=== PATIENT | female | born 1985 | race African-American/Black ===

== ENCOUNTER 2016-09-11 05:43 | Day surgery (SDC) | payer MEDICAID ==
[2016-09-09 15:50] LABS: BASOPHILS 0.8 % (0.0-2.0); EOSINOPHILS 1.9 % (0-7); HEMATOCRIT 39.4 % (36.0-48.0); HEMOGLOBIN 12.6 g/dL (12-16); IMMATURE GRANULOCYTES 0.2 % (0-5); LYMPHOCYTES 25.7 % (15-50); MCV 90.8 fL (80.0-100.0); MEAN PLATELET VOLUME 9.5 fL (7.4-10.4); MONOCYTES 6.5 % (2-11); NEUTROPHILS 64.9 % (40-80); PLATELET COUNT 288 10x3/uL (130-400); RBC 4.34 10x6/uL (4.00-5.40); RDW 13.2 % (11.5-14.5); WBC 10.1 10x3/uL (4.8-10.8)
[2016-09-09 16:00] LABS: CALC OSMOLALITY 279 mosm/kg (275-300); CHLORIDE - SERUM 105 mmol/L (98-107); CREATININE - SERUM 0.9 mg/dL (0.6-1.3); GLUCOSE 83 mg/dL (74-106); POTASSIUM - SERUM 4.3 mmol/L (3.5-5.1); SODIUM 142 mmol/L (136-145); UREA NITROGEN 8 mg/dL (7-18); eGFR NON AFRICAN AMERICAN 77 mL/min (90-120)
--- NOTE | 2016-09-10 16:55 | HP ---
PATIENT: MANOHAR ARZATE MEDICAL RECORD: [id number] ACCOUNT: [id number] LOCATION:[facility] : 84 ADMISSION DATE: 09/11/16 HISTORY AND PHYSICAL EXAMINATION HISTORY OF PRESENT ILLNESS: This patient is a 30-year-old black female with menorrhagia and myomas. Biopsy of the endometrium was attempted in office; however, cervix extremely difficult to visualize because of the patient's weight and procedure scheduled for the OR for better lighting and pelvic relaxation. The patient had undergone a pelvic ultrasound on August 23 revealing a uterus of approximately 16 cm in length and endometrium of 0.56 cm. Ovaries appeared within normal limits and uterus appeared to have a myoma. Myoma was described as large, 11.4 cm x 11. The patient is scheduled for evaluation under anesthesia with endometrial endocervical biopsies curettage as indicated. MEDICAL HISTORY: DRUG ALLERGIES: None known. CURRENT MEDICATIONS: Naproxen, lisinopril, and metaxalone. PREVIOUS SURGERIES: Tubal ligation. MEDICAL PROBLEMS: Include diabetes, and morbid obesity. FAMILY HISTORY: Noncontributory. REVIEW OF SYSTEMS: Heavy, irregular menses, lasting 3-5 days and occurring less than 21 days apart. REVIEW OF SYSTEMS: No chest pain, no dyspnea. PREVIOUS SURGERIES: Include section as well as tubal ligation. PHYSICAL EXAMINATION: VITAL SIGNS: Weight is 325 pounds, blood pressure 130/80. HEENT: Grossly unremarkable. LUNGS: Clear. HEART: Regular rate and rhythm. ABDOMEN: Well healed section incision. PELVIC: Evaluating the external vulva, unremarkable. Vagina, no lesions or abnormal discharge, no prolapse. Cervix closed, firm and unable to visualize with largest speculum. EXTREMITIES: No cyanosis, clubbing or edema. NEUROLOGIC: Grossly intact. IMPRESSION: Abnormal uterine bleeding, uterine enlargement due to myomas, cervical stenosis precluding an in office biopsy of the endometrium. PLAN: Examination under anesthesia, endocervical curettage, hysteroscopy with endometrial biopsy and endometrial curettage under anesthesia. Discussed the above plan with the patient. Discussed potential risk of surgery, answered all her questions. TRANSINT:[id number] Voice Confirmation ID: [id number] DOCUMENT ID: [id number] HISTORY AND PHYSICAL [id number] MANOHAR ARZATE BRENDA MD at 1655 CC: [id number] DICTATION DATE: 09/10/16 1251 OPEN DIE INSPECTOR: 09/10/16 [id number] [place] [address]
[~2016-09-11] VITALS: Ht 165.1 cm; Wt 145.1 kg
[~2016-09-11 05:43] MED LIST: GLUCOPHAGE500 MG PO; HYDROCHLOROTHIA25 MG PO; IBUPROFEN800 MG PO; NAPROSYN500 MG PO; NORCO 7.5/325 T1 TA1 PO; PERCOCET 5-3251 TAB PO; ROBAXIN500 MG PO
[2016-09-11 08:42] VITALS: BP 159/80; Ht 165.1 cm; Wt 145.1 kg
[2016-09-11 10:04] LABS: HCG SERUM NEGATIVE (NEGATIVE)
--- NOTE | 2016-09-11 15:10 | NUR ---
DISCHARGE INSTRUCTIONS AND RX GIVEN. DISCHARGED HOME VIA WC.
--- NOTE | 2016-09-13 08:37 | OP ---
PATIENT NAME: MANOHAR ARZATE MEDICAL RECORD: [id number] :84 LOCATION:[facility] ADMISSION DATE: SURGEON: NAY ARCHIBALD MD DATE OF OPERATION: 09/11/2016 PREOPERATIVE DIAGNOSES: Menorrhagia and myomas. POSTOPERATIVE DIAGNOSES: Menorrhagia and myomas. PROCEDURES: Examination under anesthesia, endocervical curettage, attempted hysteroscopy. SURGEON: Nay Archibald MD ANESTHESIA: General. FINDINGS: The cervix was very high in the vagina and anterior, difficult to evaluate. Endometrium was consistent in appearance with previous ablation. The endometrial cavity depth was greater than 14 cm in length. It was not possible to evaluate the entire endometrium, because of previous ablation. ESTIMATED BLOOD LOSS: Minimal. COMPLICATIONS OF SURGERY: None. OPERATIVE NOTE: The patient was taken to the OR and under adequate general anesthesia, prepped and draped in the usual manner for vaginal procedures with legs in floating boot Ra stirrups. Evaluation of the patient under anesthesia revealed the cervix to be extremely anterior with os pointing posteriorly. Cervix was grasped with tenaculum and endocervical curettage was performed. Cervical dilatation was performed. The hysteroscope was then inserted with difficulty in evaluating the entire endometrium. Visualization revealed areas consistent with an old ablation. No biopsies were taken because tissues appeared atrophic. At the end of evaluation, all instruments were removed, bleeding was minimal and the patient went to the recovery area in good condition. TRANSINT:[id number] Voice Confirmation ID: [id number] DOCUMENT ID: [id number] NAY ARCHIBALD MD at 0837 CC: [id number] DICTATION DATE: 09/11/16 1228 CRADLE SLIDE MAKER: 09/11/16 1315 [facility] 09/11/16 [place] [address]
== END 2016-09-11 15:10 | disposition home or self-care (01) ==
LOC: D.OPS 05:43 → D.PAN 11:45 → D.OPS 15:10
PROVIDERS: Anesthesiology; Obstetrics & Gynecology
DX: N92.0 Excessive and frequent menstruation with regular cycle (principal); E11.9 Type 2 diabetes mellitus without complications; E66.01 Morbid (severe) obesity due to excess calories; Z79.1 Long term (current) use of non-steroidal anti-inflammatories (NSAID); Z79.899 Other long term (current) drug therapy; Z68.43 Body mass index [BMI] 50.0-59.9, adult

== ENCOUNTER 2016-10-02 05:09 | Inpatient (IN) | payer MEDICAID ==
[2016-09-30 11:23] LABS: BASOPHILS 0.6 % (0.0-2.0); EOSINOPHILS 1.9 % (0-7); HEMATOCRIT 39.8 % (36.0-48.0); HEMOGLOBIN 12.9 g/dL (12-16); IMMATURE GRANULOCYTES 0.4 % (0-5); LYMPHOCYTES 25.5 % (15-50); MCH 29.4 pg (26.0-34.0); MCHC 32.4 g/dL (31.0-37.0); MCV 90.7 fL (80.0-100.0); MEAN PLATELET VOLUME 10.1 fL (7.4-10.4); MONOCYTES 6.5 % (2-11); NEUTROPHILS 65.1 % (40-80); PLATELET COUNT 300 10x3/uL (130-400); RBC 4.39 10x6/uL (4.00-5.40); RDW 13.2 % (11.5-14.5); WBC 11.3 10x3/uL (4.8-10.8)
[2016-09-30 11:39] LABS: CALC OSMOLALITY 280 mosm/kg (275-300); CALCIUM 8.9 mg/dL (8.5-10.1); CARBON DIOXIDE 29.9 mmol/L (21.0-32.0); CHLORIDE - SERUM 105 mmol/L (98-107); CREATININE - SERUM 0.8 mg/dL (0.6-1.3); GLUCOSE 126 mg/dL (74-106); POTASSIUM - SERUM 4.2 mmol/L (3.5-5.1); SODIUM 141 mmol/L (136-145); UREA NITROGEN 8 mg/dL (7-18); eGFR NON AFRICAN AMERICAN 89 mL/min (90-120)
[~2016-10-02] VITALS: Ht 165.1 cm; Wt 149.1 kg
[2016-10-02] VITALS (12 sets, daily range): BP systolic 107–178; BP diastolic 61–89; Ht 165.1 cm; Wt 149.1 kg
--- NOTE | 2016-10-02 00:09 | NUR ---
PAIN 7/10, BURNING AND STINGING TO INCISION AND "SOME" ACHING TO MY "BELLY." SCHEDULED TORADOL GIVEN PER ORDERS. PT REPORTS THAT SHE IS STILL EXPERIENCING ITCHING TO BLE. STATEST THAT IT HAS IMPROVED SINCE SHE REC'D BENADRYL, ADDITIONAL 25 MG SIVP BENADRYL GIVEN PER PREVIOUS ORDER THAT 25 MG DOSE COULD BE REPEATED PRN. ASSISTED WITH REPOSITIONING TO RIGHT SIDE WITH PILLOW PLACED BEHIND BACK AND BETWEEN KNEES FOR COMFORT. PT VERBALIZED RELIEF. 275 MLS CLEAR LIGHT BLUE URINE EMPTIED FROM DUBON.
[2016-10-02] MEDS ORDERED: IBUPROFEN200 MG PO (05:46)
[2016-10-02] MEDS ORDERED: NORCO 7.5/325 T1 TA1 PO (05:46)
[2016-10-02] MEDS ORDERED: LISINOPRIL5 MG PO (05:56)
[2016-10-02 06:15] LABS: HCG URINE NEGATIVE (NEGATIVE)
--- NOTE | 2016-10-02 08:10 | NUR ---
TAT BLOCK DONE PER HARRISON AT 0715 PRIOR TO SURGERY
--- NOTE | 2016-10-02 10:20 | HP ---
PATIENT: MANOHAR ARZATE MEDICAL RECORD: [id number] ACCOUNT: [id number] LOCATION:[facility] : 84 ADMISSION DATE: 10/02/16 HISTORY AND PHYSICAL EXAMINATION HISTORY OF PRESENT ILLNESS: This patient is a 30-year-old 4, para 3, AB 1 black female with enlarged myomatous uterus, pelvic pain, abnormal uterine bleeding, previous endometrial ablation with hydrothermal device in view of failure of ablation to relieve her bleeding problems and her pain as well as being continuing to enlarge myoma. She desires hysterectomy with bilateral salpingo-oophorectomy. MEDICAL ALLERGIES: None. CURRENT MEDICATIONS: Metronidazole, doxycycline, naproxen, lisinopril and metaxalone. MEDICAL PROBLEMS: Include hypertension and diabetes. PREVIOUS SURGERIES: Include endometrial ablation, tubal ligation, and section times 3 with wound infections times 2. FAMILY HISTORY: Positive for heart disease. REVIEW OF SYSTEMS: No chest pain, no dyspnea. Positive for pelvic pain and abnormal bleeding. SOCIAL HISTORY: The patient is single, nonsmoker. No ethanol use. PHYSICAL EXAMINATION: GENERAL: Well-developed, well-nourished female, in no distress. HEENT: Unremarkable. LUNGS: Clear. HEART: Regular rate and rhythm. ABDOMEN: Soft, tender throughout with markedly enlarged uterus, which is confirmed by ultrasound. PELVIC: Current. Cervix is difficult to evaluate because of deviation. EXTREMITIES: No cyanosis, clubbing or edema. NEUROLOGIC: Grossly intact. IMPRESSION: Markedly enlarged myomatous uterus, pelvic pain, failure of ablation to relieve her symptoms. PLAN: Total abdominal hysterectomy and bilateral salpingo-oophorectomy in a.m. I have discussed with the patient the indications for procedure, risks of procedure including anesthesia, infection, bleeding, possibility of injury to other organs and other complications, which can occur during any surgical procedure. She desires we proceed in a.m. TRANSINT:[id number] Voice Confirmation ID: [id number] DOCUMENT ID: [id number] HISTORY AND PHYSICAL [id number] ARZATEVINAY GREENCOLIN THRASHER MD at 1020 CC: [id number] DICTATION DATE: 10/01/161650 ANIMAL REHABILITATOR: 10/01/16 1857 ADM IN [facility] [address] [id number]
[2016-10-02 13:04] LABS: BASOPHILS 0.2 % (0.0-2.0); EOSINOPHILS 0.1 % (0-7); HEMATOCRIT 37.5 % (36.0-48.0); HEMOGLOBIN 11.9 g/dL (12-16); IMMATURE GRANULOCYTES 0.4 % (0-5); LYMPHOCYTES 8.1 % (15-50); MCH 28.9 pg (26.0-34.0); MCHC 31.7 g/dL (31.0-37.0); MEAN PLATELET VOLUME 9.7 fL (7.4-10.4); MONOCYTES 5.4 % (2-11); NEUTROPHILS 85.8 % (40-80); PLATELET COUNT 270 10x3/uL (130-400); RBC 4.12 10x6/uL (4.00-5.40); RDW 13.5 % (11.5-14.5); WBC 17.2 10x3/uL (4.8-10.8)
[2016-10-02 13:50] LABS: ALBUMIN 3.3 g/dL (3.4-5.0); ANION GAP 13.4 mmol/L (8-16); BILIRUBIN - TOTAL 0.31 mg/dL (0.2-1.3); CALCIUM 8.1 mg/dL (8.5-10.1); CARBON DIOXIDE 24.9 mmol/L (21.0-32.0); CREATININE - SERUM 1.1 mg/dL (0.6-1.3); POTASSIUM - SERUM 4.3 mmol/L (3.5-5.1); PROTEIN - SERUM 6.8 g/dL (6.4-8.2)
--- NOTE | 2016-10-02 14:06 | NUR ---
PT STATES THAT SHE IS UNCOMFORTABLE. PT REPOSITIONED IN BED. TURNED PT TO RIGHT SIDE. PT TOOK DEEP BREATH BUT DID NOT COUGH. FAMILY AT BEDSIDE. PT STILL REFUSES SCD'S.
--- NOTE | 2016-10-02 14:30 | NUR ---
PT WAS TURNED TO R SIDE AND PILLOW PLACED BEHIND BACK
--- NOTE | 2016-10-02 14:45 | NUR ---
PT WNAT TO GO BACK TO HER BACK AND A PILLOW PLACED BEHIND HER BACK. SCOOTED UP IN BED ALSO. ICE PACK REFILLED AND PLACED OVER INCISION. HE ABDOMINAL BINDER IS INTACT. DUBON INTACT. IV PATENT LEFT AC.
--- NOTE | 2016-10-02 15:20 | NUR ---
PT IS SLEEPING WELL. SISTER AT BEDSIDE. BED IS LOW, SIDE RAILS UP X 2 AND CALL LIGHT IN REACH.
--- NOTE | 2016-10-02 15:36 | NUR ---
DR PRABHAKARS HER TO SEE PT. NO NEW ORDERS NOTED.
--- NOTE | 2016-10-02 16:00 | NUR ---
PT AGREED TO PUT SCD'S BACK ON. SHE STATES HER LEGS STILL FEEL NUMB. STATES IT FEELS LIKE ANTS. SHE CAN MOVE LEGS AND FEEL ME TOUCHING HER. PT STATES THAT SHE STILL HAS PAIN IN HER ABDOMEN. NO DISCHARGE.
--- NOTE | 2016-10-02 17:01 | NUR ---
PT IS RESTING IN HER BED. SLEEPING OFF AND ON. FAMILY AT BEDSIDE. IV PATENT LEFT AC. DUBON INTACT. SCD'S INTACT. DRESSING CLEAN DRY AND INTACT AND ABDOMINAL BINDER INTACT. SIDE RAILS UP X 2 CALL LIGHT IN REACH AND BED IS LOW.
--- NOTE | 2016-10-02 17:19 | NUR ---
PT IS RESTING IN BED. DUBON EMPTIED. 1450 CC GREEN TINGED URINE. LR INFUSING LEFT AC @ 125 CC/HR. DEMEROL CULL GRADER 12 ML USED. IV PATENT. SCD'S INTACT. PT OFFERS NO COMPLAINTS. PT MOVED TO ROOM 1273 ON LABOR AND DELIVERY.
--- NOTE | 2016-10-02 18:16 | NUR ---
pt moves to room 1273 via bed. o2 off. iv paten to lt elbow. pt moving legs to help position in bed. numerous family in room. chemist organic and call light within reach.
--- NOTE | 2016-10-02 19:23 | NUR ---
SHIFT ASSESSMENT COMPLETED. PT POSITIONED TO LEFT SIDE UPON RN ARRIVAL TO ROOM. DUBON WITH 325 MLS LIGHT BLUE TO GREEN URINE PRESENT IN UROMETER OF DUBON, DRAINING WELL TO BEDSIDE DRAINAGE SYSTEM. S/O AT BEDSIDE. PAIN 8/10, TO ABD AND INCISION, REPORTS THAT PAIN HAS IMPROVED SINCE RECEIVING TORADOL. DRSG TO ABD CLEAN, DRY, AND INTACT WITH NO DRAINAGE PRESENT. ABD BINDER PRESENT AND RESECURED FOLLOWING ASSESSMENT OF DRSG. NO VAGINAL BLEEDING PRESENT ON PAD. PT C/O TINGLING TO BLE, EXPLAINED THAT SHE HAD A BLOCK DURING SURGERY AND THIS WAS A NORMAL SENSATION TO FEEL. SCD'S ON AND REMOVED, SKIN WDL. PIV TO OUTER ASPECT OF LEFT A/C, INFUSING WELL, WITH NO S/S OF INFILTRATION. PT REQUESTS THAT PIV BE RESITED D/T PIV BEING POSITIONAL AND "IRRITIATING ME BECAUSE I CAN'T MOVE MY ARM." EXPLAINED THAT PIV ACCESS HAD TO BE MAINTAINED BUT THAT RN COULD ATTEMPT TO RESITE, VERBALIZED UNDERSTANDING. INCENTIVE SPIROMETER AT BEDSIDE, PT DENIES KNOWING HOW TO USE. RN INSTRUCTED PT ON USE AND EXPLAINED PURPOSE, WITH RETURN DEMONSTRATION OF USE X10. ASSISTED WITH REPOSITIONING TO RIGHT SIDE WITH PILLOWS PLACED BEHIND BACK FOR COMFORT AND SUPPORT. ICE WATER GIVEN, DENIES ADDITIONAL NEEDS AT THIS TIME.
--- NOTE | 2016-10-02 19:41 | NUR ---
RN TO BEDSIDE, ATTEMPTING TO RESITE PIV PER PT REQUEST. ATTEMPTED TO LEFT HAND X1 WITH 20 G PIV WITHOUT SUCCESS. S/O PLACED ASUS TABLET ON BEDSIDE TABLE, RN BUMPED TABLE WHEN TURNING TO DISPOSE OF SHARPS IN CONTAINER, TABLET FELL TO FLOOR, WHEN S/O PICKED TABLET UP STATES "OH NO YOU DIDN'T. THE SCREEN IS SHATTERED." RN APOLOGIZED TO S/O AND PATIENT REPORTED INCIDENT AND REPORTS THAT SCREEN WAS CRACKED TO HERVE, SALES MANAGEMENT INTERN.
--- NOTE | 2016-10-02 20:38 | NUR ---
PT REPORTS THAT SHE FEELS LIKE HER BLE ARE ITCHING AND "I JUST CAN'T TAKE IT ANY LONGER." REPORTED TO DR. GALLARDO. ORDERS REC'D.
--- NOTE | 2016-10-02 20:43 | NUR ---
SENIOR LINUX UNIX ENGINEER AT BEDSIDE DICUSSING BROKEN TABLET SCREEN WITH PT AND S/O.
--- NOTE | 2016-10-02 21:00 | NUR ---
PT. REQUESTING IV RESITED DUE TO POSITIONAL IV. ATTEMPTED TO RESITE IN RT HAND AREA BUT PT. COMPLAINED OF PAIN AND WANTED TO STOP. INSERTION ATTEMPT STOPPED. ARM BOARD PLACED ON LT ARM AND SECURED WITH TAPE. REQUESTED SCDS REMOVED STATING THAT HER LEGS WERE TINGLING AND ITCHING. STATES HER LEGS JUST FELT THAT WAY SINCE THE NUMBNESS LEFT HER LEGS "FROM HER BLOCK IN SURGERY". SCDS REMOVED WITHOUT ANY EVIDENCE OF RASH OR REDNESS. DENIES ANY ITCHING ANYWHERE BUT LEGS. INFORMED PT. WOULD CHECK ORDERS FOR SOMETHING FOR ITCH OR WILL CALL MD. PT. STATES UNDERSTANDING. ENCOURAGED PT. TO USE INCENTIVE AT LEAST HOURLY OR MORE OFTEN WHILE AWAKE. PT. STATES THAT Anam VILLARREAL RN HAD SHOWED HER HOW TO USE IT AND SHE WOULD.
--- NOTE | 2016-10-02 21:07 | NUR ---
SCHEDULED MEDS GIVEN PER ORDERS. BENADRYL GIVEN SIVP PER ORDERS. MED DISCUSSED WITH PT, VERBALIZED UNDERSTANDING, DENIES QUESTIONS. ASSISTED PT WITH REPOSITIONING FROM RIGHT SIDE TO LEFT. PT USED INCENTIVE SPIROMETER CORRECTLY X10 AND PERFORMED COUGH AND DEEP BREATHING WITH GOOD EFFORT. S/O REMAINS AT BEDSIDE. BED IN LOW POSITION. CL/PHONE WITHIN REACH. UPPER SIDE RAILS RAISED X2. ICE WATER GIVEN. DENIES ADDITIONAL NEEDS AT THIS TIME.
--- NOTE | 2016-10-02 21:14 | NUR ---
CARBON CAPTURE POWER PLANT OPERATOR HERE TO TALK WITH PT'S S/O REGARDING HIS BROKEN TABLET.
--- NOTE | 2016-10-02 21:26 | NUR ---
HUMALOG NOT GIVEN. FSBS 94. ASSISTED WITH REPOSITIONING FROM RIGHT SIDE TO LEFT. PILLOWS PLACED BEHIND BACK FOR COMFORT AND SUPPORT. PT REPORTS THAT BACK IS HURTING, AND THAT POSITION CHANGES RELIEF THIS DISCOMFORT. 925 MLS CLEAR BLUE TINGED URINE EMPTIED FROM DUBON. SCD'S REMOVED PER REQUEST. DENIES ADDITIONAL NEEDS AT THIS TIME WILL CONT TO MONITOR.
--- NOTE | 2016-10-02 22:15 | NUR ---
PT CALLED VIA CL, REPORTS THAT SHE ISN'T COMFORTABLE IN BED. REPOSITIONED TO LEFT SIDE. VERBALIZED THAT SHE IS MUCH MORE COMFORTABLE. ICE PACK REPLACED TO ABD. DIET [place]EMON [place] SODA GIVEN PER REQUESTS. BED IN LOW POSITION. CL/PHONE WITHIN REACH. SCD'S REAPPLIED.
[2016-10-03 00:15] VITALS: BP 156/84
--- NOTE | 2016-10-03 00:15 | NUR ---
INDUSTRIAL EQUIPMENT MECHANIC PUMP BEEEPING NEAR END. DEMEROL SYRINGE CHANGED. 1 ML DEMEROL WASTED IN SHARPS WITH Gildardo DELGADILLO, CNC ROUTER OPERATOR.
--- NOTE | 2016-10-03 00:39 | NUR ---
PAIN REASSESSMENT COMPLETED. PT RESTING WITH EYES CLOSED, OPENED EYES WHEN DOOR OPENED. PAIN 4/10 AT THIS TIME. DENIES NEEDS AT THIS TIME.
--- NOTE | 2016-10-03 01:15 | NUR ---
CALLED VIA CL, ASSISTED WITH REPOSITIONING TO RIGHT SIDE. REQUESTS SCD'S BE REMOVED STATING THAT THEY ARE INFLATING TO TIGHTLY AT THIS TIME AND KEEP WAKING HER UP. ICE WATER GIVEN. DENIES ADDITIONAL NEEDS AT THIS TIME.
--- NOTE | 2016-10-03 02:30 | NUR ---
NEW BAG LR HUNG AT 125 MLS/HR. SCD'S REAPPLIED. PT PERFORMED COUGH AND DEEP BREATHING WITH GOOD EFFORT AND INCENTIVE SPIROMETER X10. PAIN 5-6/10. ENCOURAGED USE OF CLEANING MAID, PT PRESSED BUTTON. ASSISTED WITH REPOSITIONING. VERBALIZED RELIEF. DIET LEMON [place] SODA GIVEN PER REQUEST, NEW ICE PACK PROVIDED TO ABD.
--- NOTE | 2016-10-03 04:00 | NUR ---
CALLED NURSE TO ROOM TO PULL HER COVERS OVER HER. PT. REQUESTED RT LEG SCD OFF. EXPLAINED TO PT. PURPOSE OF THE SCDS AND INFORMED THAT MD WOULD NOT WANT HER TO TAKE IT OFF. PT. STATES IT FEELS TOO TIGHT AT ANKLE. CHECKED AT ANKLE AND THIS NURSES ENTIRE HAND FIT UNDER THE SLACK AT THE ANKLE. PT. INFORMED. SLEEPING AT INTERVALS AND NO LONGER PROTESTING SCD. LEFT IN PLACE.
--- NOTE | 2016-10-03 04:47 | NUR ---
ROUNDS MADE. PT RESTING WITH EYES CLOSED. RESPIRATIONS REGULAR, NO S/S OF ACUTE DISTRESS. BED REMAINS IN LOW POSITION WITH UPPER SIDE RAILS RAISED X2 WITH HOB ELEVATED TO 30 DEGREES. CL/PHONE WITHIN REACH.
[2016-10-03 06:00] VITALS: BP 149/74
--- NOTE | 2016-10-03 06:00 | NUR ---
SCHEDULED TORADOL GIVEN PER ORDERS. PAIN 8/10 TO ABD AND INCISION. 550 MLS LIGHT BLUE TO GREEN URINE EMPTIED FROM DUBON. APPLE JUICE GIVEN PER REQUEST. VSS. PT REQUESTED THAT SCD BE REMOVED FROM RIGHT LEG AND LEFT LEG SCD BE PLACED. EXPLAINED NEED FOR BOTH, PT STATES THAT WHEN THEY ARE BOTH ON HER LEGS GET TO HOT. STATES THAT IT FEELS BETTER TO HAVE ONE AT A TIME ON. INCENTIVE SPIROMETER USED X10, COUGH AND DEEP BREATHING DONE WITH GOOD EFFORT. REPOSITIONED TO BACK PER REQUEST. BED IN LOW POSITION WITH UPPER SIDE RAILS RAISED X2, CL/PHONE WITHIN REACH.
--- NOTE | 2016-10-03 06:42 | NUR ---
FSBS 108. HUMALOG HELD.
[2016-10-03 07:04] LABS: BASOPHILS 0.2 % (0.0-2.0); EOSINOPHILS 0.4 % (0-7); HEMATOCRIT 32.5 % (36.0-48.0); HEMOGLOBIN 10.3 g/dL (12-16); IMMATURE GRANULOCYTES 0.3 % (0-5); LYMPHOCYTES 15.1 % (15-50); MCH 28.8 pg (26.0-34.0); MCHC 31.7 g/dL (31.0-37.0); MCV 90.8 fL (80.0-100.0); MEAN PLATELET VOLUME 9.4 fL (7.4-10.4); MONOCYTES 9.7 % (2-11); NEUTROPHILS 74.3 % (40-80); PLATELET COUNT 243 10x3/uL (130-400); RBC 3.58 10x6/uL (4.00-5.40); RDW 13.6 % (11.5-14.5)
[2016-10-03 07:09] LABS: WBC 11.7 10x3/uL (4.8-10.8)
[2016-10-03 07:16] LABS: ALBUMIN 2.8 g/dL (3.4-5.0); ALKALINE PHOSPHATASE 43 U/L (46-116); ALT (SGPT) 31 U/L (10-68); CALC OSMOLALITY 277 mosm/kg (275-300); CALCIUM 8.2 mg/dL (8.5-10.1); CARBON DIOXIDE 29.1 mmol/L (21.0-32.0); CHLORIDE - SERUM 105 mmol/L (98-107); CREATININE - SERUM 0.9 mg/dL (0.6-1.3); GLUCOSE 112 mg/dL (74-106); POTASSIUM - SERUM 3.7 mmol/L (3.5-5.1); PROTEIN - SERUM 6.7 g/dL (6.4-8.2); SODIUM 140 mmol/L (136-145); UREA NITROGEN 7 mg/dL (7-18); eGFR NON AFRICAN AMERICAN 77 mL/min (90-120)
--- NOTE | 2016-10-03 07:28 | OP ---
PATIENT NAME: MANOHAR ARZATE MEDICAL RECORD: [id number] :84 LOCATION:[id number] ADMISSION DATE:10/02/16 SURGEON: NAY ARHCIBALD MD DATE OF OPERATION: 10/02/2016 PREOPERATIVE DIAGNOSES: Pelvic pain and myomas. POSTOPERATIVE DIAGNOSES: Pelvic pain and myomas. PROCEDURE: Total abdominal hysterectomy, bilateral salpingo-oophorectomy. SURGEON: Nay Archibald MD ANESTHESIA: General. FINDINGS: An 18-week size myomatous uterus with normal appearing ovaries, status post tubal ligation. ESTIMATED BLOOD LOSS: 600 cc. COMPLICATIONS OF SURGERY: None. OPERATIVE NOTE: The patient was taken to the OR and under adequate general anesthesia, prepped and draped in the usual manner for abdominal procedures. A vertical incision was made, extended through subcutaneous tissue and fascia from the pubic symphysis to the umbilicus. This was extended through subcutaneous tissue, fascia, dividing muscles in the midline. Dense adhesions were encountered upon entry into the peritoneum. Adhesions of the uterus to the anterior abdominal wall were carefully lysed using electrocautery, blunt and sharp dissection. The round ligaments were identified on the right and left and ligated using #1 chromic sutures and electrocautery. The infundibulopelvic ligaments were identified on the right and left and ligated using Jose clamps and #1 chromic suture. Dense adhesions that were encountered anteriorly were carefully lysed using electrocautery, blunt and sharp dissection. This exposed the blood supply on the right and left uterus. The uterine vessels were ligated using Jose clamps, #1 chromic suture. Bladder was carefully dissected away from the lower uterine segment and cervix in order to allow manipulation of instruments. The uterine fundus was amputated at the cervicouterine junction using electrocautery. This portion of the specimen included the uterine fundus and multiple myomas of approximately 18 weeks' size, both tubes status post ligation with Filshie clips and both ovaries. After advancing the bladder completely off with the cervix, cardinal ligaments were progressively ligated using Jose clamps and #1 chromic suture. Specimen was then excised. This portion of the specimen included cervix only. Pedicles were made hemostatic using #1 chromic suture. Methylene blue was injected transvenously early in case to confirm integrity of urinary tract. No spillage was seen intraabdominally during the case. Vaginal apex was closed using [id number] #1 chromic sutures. Pelvis was copiously irrigated and suctioned and hemostasis confirmed. Gallo was used on all pedicles. All instruments and laps were removed. Sponge and needle counts were correct instrument count correct. Fascial layer closed in a running noninterlocking #1 PDS loop suture. Skin was reapproximated in 3 layers using 2 layers of 2-0 plain gut suture. Skin reapproximated using rama. Pressure dressing was applied and the patient went to the recovery area in good condition. OPERATIVE REPORT [id number] MANOHAR ARZATE TRANSINT:[id number] Voice Confirmation ID: [id number] DOCUMENT ID: [id number] NAY ARCHIBALD MD at 0728 CC: [id number] DICTATION DATE: 10/02/16 1101 AGRICULTURE TEACHER: 10/02/16 1743 ADM IN [facility] [address] [id number]
--- NOTE | 2016-10-03 07:45 | NUR ---
DR. ARCHIBALD IN TO ASSESS. PATIENT USES CALL LIGHT TO REQUEST ASSIST REPOSITIONING FOR COMFORT.
[2016-10-03 07:49] LABS: HEMOGLOBIN A1C 6.5 % (4.8-6.0)
[2016-10-03 08:14] VITALS: BP 139/80
--- NOTE | 2016-10-03 08:17 | NUR ---
[place] AWAKE AND ALERT, HOB UP 45 DEGREES. SHE IS WORKING ON HER CELL PHONE. HER SCD'S HAVE BEEN ADJUSTED AND SHE CONFIRMS SHE IS COMFORTABLE. SHE HASN'T HAD ANY VAGINAL BLEEDING. HER ABDOMINAL INCISION IS DRESSED AND AN ABDOMINAL BINDER IS IN PLACE. THE DRESSING IS C/D/I. SHE DENIES NAUSEA AND STATES THAT SHE CAN FEEL GAS MOVING AROUND IN HER ABDOMEN. SHE HASN'T PASSED GAS YET. ENCOURAGED HER TO TRY TO MOVE IT ON OUT WHEN SHE FEELS ABLE. DISCUSSED THE POC FOR THE DAY. PT IS GOING TO COME ASSIST HER OOB TO HER FEET. SHE STATES THAT SHE IS READY TO DO THIS BRYAN. SHE IS RATING HER PAIN AN 8. FORMING MILL OPERATOR IN USE. IVF INFUSING PER ORDERS. HER DUBON CATHETER IS PATENT. PALE GREEN URINE TO THE UROMETER. ANOTHER PILLOW PROVIDED FOR COMFORT. SHE REFUSES HER CL DIET AT THIS TIME, SHE WILL ATTEMPT IT LATER SHE STATES. VSS. CALL LIGHT WITHIN REACH. MONITORING.
--- NOTE | 2016-10-03 09:37 | NUR ---
PATIENT IS RESTING WITH EYES CLOSED, DEEP EVEN RESPIRATIONS WITH HOB UP 45 DEGREES. SHE CONTINUES TO RATE HER PAIN AN 8. SHE HAD A PRODUCTIVE COUGH WITH ME AT THE BEDSIDE. SHE THEN MANAGED TO GET HER INCENTIVE SPIROMETER TO 1500 THREE TIMES. EDUCATED ON THE PUROPSE OF THIS EXERCISE AND THE IMPORTANCE OF DEEP BREATHING. SHE VOICE UNDERSTANDING WHEN I TOLD HER TO DO THIS 10 TIMES CONSECUTIVELY EVERY HOUR.
--- NOTE | 2016-10-03 09:46 | NUR ---
DR ARCHIBALD NOTIFIED PT WITH NO PO PAIN MEDS ORDERED. NEW ORDERS RECEIVED.
--- NOTE | 2016-10-03 10:41 | NUR ---
PATIENT UP TO BEDSIDE AND TOOK THREE STEPS FORWARD THEN BACK WITH THE ASSIST OF PT. SHE WAS DIZZY WHEN FIRST UP TO THE BEDSIDE BUT THIS QUICKLY PASSED AND SHE DENIED DIZZINESS WHEN SHE STOOD. AT THE BEDSIDE. PATIENT REQUESTED TO STAY UP ON THE BEDSIDE FOR A WHILE. CALL LIGHT IS WITHIN HER REACH. SHE WAS INSTRUCTED TO CALL WITH ANY NEEDS.
--- NOTE | 2016-10-03 12:30 | NUR ---
PATIENT RESTING WITH EYES CLOSED I ENTER. SHE HAS EATEN HER LUNCH. FSBS 135. SHE IS RATING HER PAIN A 9. MORTIN GIVEN. SPOUSE ASLEEP ON THE COUCH. SHE REQUESTED THAT I CLOSE THE DOOR AND LABORATORY PHLEBOTOMIST THE LIGHTS. "I AM TRYING TO GO TO SLEEP". CALL LIGHT IN HER HAND, HOB UP 45 DEGREES.
--- NOTE | 2016-10-03 13:19 | NUR ---
PATIENT UP TO THE RESTROOM, OJ GONGT SHE FEELS LIKE SHE HAS TO URINTE. SHE WAS ABLE TO GET OOB WITH ONE PERSON'S ASSIST. SMALL AMT OF SPOTTING NOTED ON THE LUIS CARLOS. (2 QUARTER SIZE SPOTS) SPOUSE AT THE BEDSIDE. ALLOWED HER PRIVACY TO VOID. 300CC OP. SHE AMBULATES INDEPENDENTLY, BACK TO BED WITH MINIMAL ASSIST. SCD'S REPLACED.
[2016-10-03 13:28] VITALS: BP 129/62
--- NOTE | 2016-10-03 14:35 | NUR ---
PATIENT WHEELED OVER TO ROOM 1214. ASSISTED INTO BED AND ASSISTED HER WITH POSITIONING FOR COMFORT. SHE LIKES THE PILLOWS. SHE REQUIRES ONLY MINIMAL ASSIST TO GET FROM SITTING TO STANDING. BROUGHT A PERSONAL BELONGING BAG, CELL PHONE AND CURTAIN FRAMER. FRESH WATEER AND CALL LIGHT PROVIDED. SHE DENIES OTHER NEEDS.
--- NOTE | 2016-10-03 14:57 | NUR ---
ASSISTED THE PATINET UP TO THE RESTROOM. SHE CONTINUES TO HAVE SOME LUIS DRAINAGE, PRESUMABLY FROM VAGINA. ASSISTED HER WITH WIPING AFTER VOIDING. 300CC DARK URINE NOTED. ASSISTED BACK TO BED. SHE JUST NEEDED HELP GETTING HER HEELS UP TO THE MATTRESS. DEMEROL GIVEN FOR PAIN RATED A 10. LEFT HER WITH CALL LIGHT IN HAND. ENCOURAGED HER TO CALL WITH ANY REQUESTS/NEEDS.
--- NOTE | 2016-10-03 15:49 | NUR ---
PATINET RESTING QUIETLY WITH EYES CLOSED, RESPIRATIONS DEEP AND EVEN. HOB IN SEMI FOWLERS.
--- NOTE | 2016-10-03 16:55 | NUR ---
ASSISTED THE PATIENT UP TOT HE RESTROOM AND BACK TO BED. REQUIRES ONLY MINIUMAL ASSIST. DENIES DIZZINESS. DOES HAVE DIFFICULTY WIPING HERSELF. SHE STATE STHAT SHE WANTS TO WAIT UNTIL TONIGHT TO [place] WHEN HER FAMILY IS HERE. POSITIONED FOR COMFORT WITH PILLOWS. SHE IS VOIDING WITHOUT DIFFICULTY
--- NOTE | 2016-10-03 17:43 | NUR ---
ASSISTED THE PATIENT WITH REPOSITIONING FOR MEAL. SHE IS PASSING GAS.
--- NOTE | 2016-10-03 19:30 | NUR ---
TO PT ROOM. PT IN PROCESS OF GETTING OUT OF BED GOING TO BATHROOM. ASSISTING. PT REQUESTS A SHOWER SINCE SHE IS UP. PT VOIDED THEN ASSISTED TO SHOWER STOOL. ASSISTED WITH WASHING PT AND REMOVED DUBON FASTENER FROM LEG. ABD. DRESSING WET BUT UNABLE TO REMOVE WHILE PT SITTING OR STANDING. DRIED PT OFF AND ASSISTED BACK TO BED. LAID FLAT AND ABD. DRESSING REMOVED. NOTED OLD DRIED BLOOD ON BOTTOM OF GUAZE DRESSING. VERTICAL INCISION WITH GILMER INTACT. UNABLE TO VISUALIZE BOTTOM OF INCISION DUE TO ABDOMINAL OVERHANG. PATTED AREA DRY AND DID NOT NOTE ANY BLOODY DRAINAGE. PLACED PERIPAD OVER GILMER AND ON PERINEUM. REPLACED ABDOMINAL BINDER AND SCDS. TURNED PT TO RIGHT SIDE. TOOK APPROX 1 HR TO PROVIDE ASSISTANCE. ADVISED PT THAT NURSE WILL WAIT UNTIL 9PM MEDS/DSTICK FOR VITALS SIGNS SINCE SHE STATES SHE IS "WORE OUT" AND NEEDS TO REST. TO CALL FOR NURSE PRN.
--- NOTE | 2016-10-03 21:00 | NUR ---
ASSISTED TO BATHROOM BY Anam VILLARREAL RN. VOIDED AND RETURNED TO BED. PINK/BLUE PADS REPLACED. PERIPAD REPLACED ON PERINEUM. PT REPORTS NAUSEA AFTER RETURNING TO BED/MOVEMENT. PT COMPLAINS OF INCREASED PAIN IN INCISION. PT INFORMED THAT PAIN MEDS CANNOT BE GIVEN AT THIS TIME. REPOSITIONED PT FOR COMFORT. HEATED BLANKET APPLIED FOR COMFORT ALSO. WILL GIVE PAIN MEDS BRYAN.
--- NOTE | 2016-10-03 21:10 | NUR ---
FINGERSTICK DONE FOR DSTICK. DSTICK: 75 MG/DL. PT CURRENTLY DRINKING LEMON/COUSH[place]TA SODA FOR NAUSEA. COLACE GIVEN BUT PT REFUSES MIRALAX AFTER MIXING/SCANNING OF MED. STATES "I JUST CANT DRINK ANY JUICE". PT NOTES THAT NAUSEA IS BETTER NOW THAT SHE IS IN BED AND PROPPED ON PILLOWS. DENIES ANY OTHER REQUESTS AT THIS TIME.
[2016-10-03 22:00] VITALS: BP 155/78
--- NOTE | 2016-10-03 22:00 | NUR ---
SHIFT ASSESSMENT/VITAL SIGNS DONE. DEMEROL 100 MG PO GIVEN FOR LEVEL 10 PAIN. PT STATES NAUSEA IS GONE AT THIS TIME. SCDS IN PLACE/ON. NO OTHER REQUESTS AT THIS TIME. VISITORS IN ROOM.
--- NOTE | 2016-10-03 22:56 | NUR ---
PAIN REASSESSMENT DONE. PT STATES THAT HER PAIN IS MAYBE A LITTLE BETTER AT A 9. STATES SHE IS NAUSEATED WHEN SHE MOVES MUCH. PROVIDED LEMON/[place] SODA AND ASKED IF PT WANTED CRACKERS. WAS TOLD NO. PT STATES "I THINK I AM HURTING MORE BECAUSE THE BED FELL WHEN I GOT BACK FROM MY SHOWER EARLIER". NOTED THAT HOB APPEARED TO CATCH ON WALL SPEAKER/CALL LIGHT CORD AND PULLED IT OUT OF WALL WHILE LOWERING HOB TO GET PT FLAT AT POSSIBLE FOR DRESSING REMOVAL. WHEN CORD WAS PULLED OUT, BED DID JERK DOWNWARDS A SMALL AMOUNT BED SETTLED INTO PLACE. WALL SPEAKER WAS REPLACED INTO WALL AND FASTENED WITH TAPE. CALL LIGHT CORD REPLUGGED--NOTED THAT IT IS WORKING AT THIS TIME. NOTED THAT PT APPEARED TO BE RESTING QUIETLY WHEN NURSE FIRST OPENED DOOR. PT DENIES ANY OTHER REQUESTS AT THIS TIME.
--- NOTE | 2016-10-03 23:15 | NUR ---
CALLED TO PTS ROOM. SCDS MACHINE IS ALARMING. REMOVED/REAPPLIED LEG SLEEVES AND HOOKED/REHOOKED UP CORDS. UNPLUGGED/REPLUGGED MACHINE. CONTINUES TO ALARM WITH A WRENCH/MECHANICAL FAILURE. SCD MACHINE REPLACED WITH DIFFERENT MACHINE. APPEARS TO BE WORKING FINE AT THIS TIME. PT ASLEEP ON BACK WITH NO S/S OF DISTRESS. NOTED DEEP SNORING TYPE RESPIRATIONS AND NO RESTLESSNESS AT THIS TIME.
--- NOTE | 2016-10-04 01:00 | NUR ---
PT ASSISTED UP TO BATHROOM BY Risa COLLIER RN. [facility] REPORTS PT VOIDED AND WAS ASSISTED BACK TO BED. LEMON/[place] SODA PROVIDED. SANPA ALSO REPORTS PT C/O BEING HOT AND HAS REMOVED GOWN/COVERS FOR COMFORT.
[2016-10-04 01:10] VITALS: BP 155/75
--- NOTE | 2016-10-04 01:10 | NUR ---
VITAL SIGNS DONE. NOTED PT IS LYING WITH HOB UP. NO GOWN/BED COVERINGS ON PT. PROVIDED COOL WET WASHCLOTH. PT STATES "THAT FEELS BETTER". ADVISED PT THAT PAIN MEDS CAN CAUSE FLUSHING FEELINGS. COVERED LIGHTLY WITH FLAT SHEET AND TURNED PT TO RIGHT SIDE WITH MULTIPLE PILLOW FOR COMFORT. DENIES ANY OTHER REQUESTS AT THIS TIME.
--- NOTE | 2016-10-04 02:30 | NUR ---
ROOM CHECK. PT ASLEEP/RESTING QUIETLY. DID NOT AWAKEN WHEN DOOR OPENED. NO APPARENT SIGNS OF DISTRESS AT THIS TIME.
--- NOTE | 2016-10-04 03:50 | NUR ---
CALLED TO ROOM. PT C/O OF NAUSEA. STATES "I COUGHED SOME PHLEGM AND I GAGGED. NOW IM NAUSEATED". PT REQUESTS PAIN MEDS. DEMEROL AND MOTRIN GIVEN AT THIS TIME. STRAIGHTENED PTS BED LINENS AND PILLOWS AND PROVIDED FRESH LEMON/SHAWNEE SODA. PT DECLINES JAMAL CRACKER/POPSICLE OFFER. REMOVED SCDS AND REPOSITIONED PER PTS REQUEST. PT DENIES ANY OTHER COMPLAINTS/REQUESTS AT THIS TIME.
--- NOTE | 2016-10-04 05:00 | NUR ---
LAB HERE FOR AM LAB DRAW.
[2016-10-04 05:40] LABS: BASOPHILS 0.4 % (0.0-2.0); EOSINOPHILS 1.8 % (0-7); HEMATOCRIT 33.1 % (36.0-48.0); HEMOGLOBIN 10.4 g/dL (12-16); IMMATURE GRANULOCYTES 0.5 % (0-5); LYMPHOCYTES 17.4 % (15-50); MCH 28.6 pg (26.0-34.0); MCHC 31.4 g/dL (31.0-37.0); MCV 90.9 fL (80.0-100.0); MEAN PLATELET VOLUME 9.8 fL (7.4-10.4); MONOCYTES 8.9 % (2-11); PLATELET COUNT 265 10x3/uL (130-400); RBC 3.64 10x6/uL (4.00-5.40); RDW 13.4 % (11.5-14.5); WBC 13.1 10x3/uL (4.8-10.8)
--- NOTE | 2016-10-04 06:00 | NUR ---
TO PTS ROOM FOR VITAL SIGNS. PT IS ASLEEP WITH SNORING RESPIRATIONS. DID NOT WAKE UP WHEN DOOR OPENED. WILL DEFER VITALS UNTIL PT WAKES/CALLS FOR NURSE SINCE PT APPEARS TO BE COMFORTABLE/LESS RESTLESS THAN SHE HAS BEEN. NOTED PT IS LYING ON BACK WITH HOB ELEVATED APPROX 45DEGREES. SCDS IN PLACE.
[2016-10-04 06:06] LABS: ALBUMIN 2.9 g/dL (3.4-5.0); ALKALINE PHOSPHATASE 47 U/L (46-116); ALT (SGPT) 30 U/L (10-68); BILIRUBIN - TOTAL 0.38 mg/dL (0.2-1.3); CALC OSMOLALITY 272 mosm/kg (275-300); CARBON DIOXIDE 29.2 mmol/L (21.0-32.0); CHLORIDE - SERUM 103 mmol/L (98-107); CREATININE - SERUM 0.8 mg/dL (0.6-1.3); GLUCOSE 118 mg/dL (74-106); POTASSIUM - SERUM 3.8 mmol/L (3.5-5.1); SODIUM 137 mmol/L (136-145); UREA NITROGEN 6 mg/dL (7-18); eGFR NON AFRICAN AMERICAN 88 mL/min (90-120)
--- NOTE | 2016-10-04 06:30 | NUR ---
CALLED TO ROOM TO REPLACE SCD SLEEVE THAT HAS COME UNDONE. UNFASTENED BOTH SLEEVES AND READJUSTED/REAPPLIED. ASSISTED WITH TURN/POSITIONING TO LEFT SIDE AND POSITIONING OF SURROUNDING PILLOWS. NOTED PT COUGHED X 2 WITH WEAK EFFORT. ENCOURAGED PT TO HOLD PILLOW LOW ON ABDOMEN AND GIVE UPWARD SUPPORT TO INCISION DURING COUGHING INSTEAD OF PUSHING STRAIGHT DOWN. INC. SPIROMETER DONE X 2. PT DENIES ANY OTHER COMPLAINTS/REQUESTS AT THIS TIME.
[2016-10-04 07:30] VITALS: BP 158/88
--- NOTE | 2016-10-04 07:30 | NUR ---
PT IS RECEIVED LYING IN BED. VSS. GEN- EASILY AROUSED. LUNGS- CLEAR. HEART- RRR. ABD- OBESE, WITH TENDERNESS NOTED. BS +. VETICAL INCISION NOTED WITH GILMER INTACT. INCISION CLEAN AND DRY. CARLOTTA PAD WITH NO BLEEDING. EXT- WITH SCD'S NOTED. BED IS LOW, CALL LIGHT IN REACH AND SIDE RAILS UP X 2. PT ENCOURAGED TO GET UP AND AMBULATING AND MOVING AROUND. ENCOURAGED INC JALEN .
--- NOTE | 2016-10-04 07:45 | NUR ---
DR ARCHIBALD IS HERE TO SEE PT. ENCOURAGED PT TO GET UP AND WALK. VIEWED INCISION AND INSTRUCTED PT TO KEEP INCISION CLEAN AND DRY. INSTRUCTED PT THAT SHE WAS GOING TO START HER ON LOVENOX. FEELS PT IS AT RISK OF BLOOD CLOTS DUE TO BEING SEDENTARY.
--- NOTE | 2016-10-04 09:00 | NUR ---
CONTACTED DR ARCHIBALD. COULD NOT FIND HORMONE PATCH ON PT OR COULD NOT FIND ORDER FOR THIS. SHE ORDERED ESTRADERM PATCH TO APPLY.
--- NOTE | 2016-10-04 10:10 | NUR ---
PT IS UP TO BATHROOM. TOLERATED WELL. VOIDED WITHOUT DIFFICULTY.
--- NOTE | 2016-10-04 10:26 | NUR ---
PT IS UP TO VOID. TOLERATED WELL. PT BACK TO BED. SITTING UP IN BED. STATES SHE FEELS A LITTLE NAUSEATED. SHE STATES SHE DOES NOT FEEL LIKE SHE IS GOING TO THROW UP. JUST FEELS QUEEZY. GAVE HER SOME CRACKERS AND JELLO AND SOME CHICKEN NOODLE SOUP TO TRY.
--- NOTE | 2016-10-04 11:00 | NUR ---
DR MICHEL IS HERE TO SEE PT. HE STATES THAT IT IS OK TO DISCHARGE PT FROM THEIR STANDPOINT. SHE WILL RESUME HER HOME MEDS ORDERED AND FU WITH DR TOTH IN 2 WEEKS. APPT WILL BE OCT 11 AT 11:30.
--- NOTE | 2016-10-04 11:21 | NUR ---
BS IS 94.
--- NOTE | 2016-10-04 11:48 | NUR ---
PT IS UP AND AMBULATED IN HALLWAY WITH ME. SHE TOLERATED WELL. SHE IS NOW SITTING IN CHAIR. CHAIR IS LOCKED. CALL LIGHT IN REACH.
--- NOTE | 2016-10-04 12:30 | NUR ---
PT IS RESTING IN BED. OFFERS NO COMPLAINTS. BED IS LOW, SIDE RAILS UP X 2 AND CALL LIGHT IN REACH.
--- NOTE | 2016-10-04 12:40 | NUR ---
PT UP TO BATHROOM TO VOID. PT BACK TO BED. NO COMPLAINTS.
--- NOTE | 2016-10-04 16:10 | NUR ---
UP TO BATHROOM PER SELF TO VOID.
[2016-10-04 16:20] VITALS: BP 134/73
--- NOTE | 2016-10-04 16:20 | NUR ---
RETURNED TO BED AFTER VOIDING. REQUESTED PAIN MEDICATION FOR 8/10 INCISIONAL THROBBING. ALSO REQUESTED ASSISTANCE ADJUSTING ABDOMINAL BINDER. CLEAN PERIPAD PLACE OVER INCISION. SCANT SEROUS FLUID AND DARK BLOOD NOTED ON OLD PAD. GILMER INTACT. BINDER REPLACED STUGGLY PER PATIENT COMFORT LEVEL.
--- NOTE | 2016-10-04 16:43 | NUR ---
FSBS OBTAINED. CURRENTLY 92. NO INSULIN NEEDED PER SLIDING SCALE. AWAITING PHARMACY ENTER PT MED INTO [facility] FOR PAIN MEDICATION.
--- NOTE | 2016-10-04 16:52 | NUR ---
DEMEROL 100 MG GIVEN PO FOR PAIN MANAGEMENT OF 03/27. POSITIONED FOR COMFORT. ESTRADIAL PATCH PLACED ON RIGHT HIP AFTER DISCUSSING PURPOSE OF PATCH. SIDERAILS UP X 2. CALL LIGHT IN REACH. HOB AT 30 DEGREES. VISITORS IN ROOM, NO ADDITIONAL REQUESTS AT THIS TIME.
--- NOTE | 2016-10-04 19:00 | NUR ---
BEDSIDE REPORT REC'D FROM Jasen HILLMAN RN. PT REC'D SITTING UP WITH HOB ELEVATED AT 45 DEGREES TEXTING AND WATCHING TV. REPORTS THAT PAIN 4-5/10 AT THIS TIME. STATES THAT SHE NEEDS TO GET UP TO VOID, PT ABLE TO GET OOB INDEPENDENTLY, BUT SLOWLY. AMBULATES TO BATHROOM. PERIPAD TO INCISION FELL TO FLOOR, RN NOTED SCANT AMT SEROSANGUINEOUS AT BOTTOM OF PERIPAD, NO OROR PRESENT. INCISION APPEARS WELL APPROXIMATED, NO ERYTHEMIA OR WARMTH NOTED TO INCISION. PT LIFTED ABD FOLD, GILMER ALL APPEAR INTACT, PT DENIES INCREASED PAIN TO INCISION, STATING THAT IT DRAINED "A LITTLE EARILER IN THE DAY TOO." PT REQUEST TO SHOWER AT THIS TIME. RN TO GET LINENS AND TOWELS. PT SITTING IN CHAIR AT BEDSIDE.
--- NOTE | 2016-10-04 19:06 | NUR ---
RN BACK TO ROOM. SHOWER TURNED ON. PT UP AND AMBULATORY TO SHOWER. WATER TEMP ADJUSTED TO PT COMFORT AND SHOWER HEAD HANDED TO PT. RN INSTRUCTED ON INCISIONAL CARE, AVOIDING TAKING BATHS BUT SHOWERING IS OKAY. USE ANTIBACTERIAL SOAP, PAT DON'T RUB INCISION. PT VERBALIZED AND DEMONSTRATED UNDERSTANDING. RN ASSISTED PT WITH WASHING BACK AND BLE D/T INABILITY OF PT TO REACH THESE AREAS. PT STOOD IN SHOWER AND RN ASSISTED WITH CLEANSING OF PERINEAL AREA PT WAS UNABLE TO REACH PERINUM WITH WASH CLOTH. PT WASHED FACE, BUE, AND CHEST AND ABD WITHOUT ASSISTANCE. PT TOLERATED SHOWER WELL, RN PROVIDED ASSISTANCE DRSG AND BACK TO BED. SHOWER COMPLETED AT 1926.
--- NOTE | 2016-10-04 19:28 | NUR ---
PT BACK TO BED POST SHOWER. PT DEMONSTRATED TO RN PATTING INCISION DRY WITH TOWEL. RN NOTED MOISTURE TO ABD FOLD AND PATTED AREA DRY. INSTRUCTED AND DEMONSTRATED TO PT APPLICATION OF GAUZE TO INCISION AND APPLYING PERIPAD TO INCISION AND EDUCATED THAT THIS NEEDED TO BE DONE WITH INCISION TO ASSURE IT REMAINS CLEAN AND DRY. PT STATEST THAT WHEN SHE GOES HOME THAT HER S/O WILL ASSIST HER INCISIONAL CARE PRN. RN INSTRUCTED THAT PILLOWCASE COULD ALSO BE PLACED HORTIZONTALLY AND VERTICALLY TO ABD FOLDS TO ASSIST IN KEEPING INCISION CLEAN AND DRY. RN EDUCATED PT ON S/S OF INFECTION/INCISIONAL COMPLICATIONS TO REPORT IF THEY OCCURRED FOLLOWING D/C, VERBALIZED UNDERSTANDING.
[2016-10-04 19:46] VITALS: BP 143/83
--- NOTE | 2016-10-04 19:46 | NUR ---
SHIFT ASSESSMENT COMPLETED. BOWEL SOUNDS PRESENT AND ACTIVE X4 QUADS. ABD BINDER REAPPLIED. PT WITH WEAK COUGH AT THIS TIME, REPORTS THAT SHE HAS A PRODUCTIVE COUGH AT TIMES WITH WHITE TO GREEN SPUTUM, NONE PRESENT WITH CURRENT COUGH. ENCOURAGED TO COUGH AND DEEP BREATH WITH RN AT BEDSIDE, PERFORMED BOTH WITH GOOD EFFORT FOLLOWING ENCOURAGMENT. INCENTIVE SPIROMETER USED WITH RN AT BEDSIDE X10 AT THIS TIME. REINFORCED IMPORTANCE OF USING EVERY HOUR X10 WHILE AWAKE, IMPORTANCE EXPLAINED, VERBALIZED UNDERSTANDING AND DENIED QUESTIONS. BREATH SOUNDS CLEAR AND EQUAL BILATERALLY AT THIS TIME. PAIN 6/10, DENIES NEED FOR INTERVENTION AT THIS TIME, STATES THAT SHE WOULD LIKE TO REST. PLAN OF CARE DISCUSSED AND PT AGREEABLE TO AMBULATE WITH RN IN AN HOUR. DENIES QUESTIONS AT THIS TIME. BED IN LOW POSITION, CL/PHONE WITHIN REACH. UPPER SIDE RAILS RAISED X2.
--- NOTE | 2016-10-04 20:38 | NUR ---
RN TO BEDSIDE. COUGH AND DEEP BREATHING DONE WITH ENCOURAGMENT. INITIAL EFFORT WAS WEAK BUT IMPROVED WITH ENCOURAGMENT. REINFORCES SPLINTING TEACHING, PT VERBALIZED THAT SPLINTING RELIEVED PAIN GREATLY WHILE PERFORMING BREATHING EXERCISES. INCENTIVE SPIROMETER USED X10. SPRITE GIVEN PER REQUEST. DENIES ADDITIONAL NEEDS AT THIS TIME.
--- NOTE | 2016-10-04 21:02 | NUR ---
FSBS 91. PAIN 10/10 AT THIS TIME, PT TEARFUL. MOTRIN AND DEMEROL GIVEN PER REQUEST. PT STATES THAT DEMEROL SEEMS CONTROL BETTER THAN PERCOCET. REPORTS INTERMITTENT ABD CRAMPING AND SHARP, ACHING PAINS TO MID ABD AND INCISION. PT REPORTS THAT SHE FEELS SHE NEEDS TO HAVE BM BUT HAS NOT BEEN ABLE TO DO SO BUT CONTINUES TO PASS FLATUS. DISCUSSED DULCOLAX SUPP, PT DECLINED AT THIS TIME STATING THAT SHE WANTED TO SEE IF MIRALAX AND COLACE WOULD BE EFFECTIVE. DISCUSSED ORDER FOR DRINKING PRUNE JUICE WITH SODA, AND EXPLAINED THAT THIS IS SOMETIMES EFFECTIVED IN RELIEVEING CONSTIPATION, VERBALIZED UNDERSTANDING AND DECLINED PRUNE STATING "THAT WILL MAKE ME THROW UP. PRUNE JUICE IS DISGUSTING." INSTRUCTED THAT DULCOLAX SUPPOSITORY WAS AVAILABLE PRN AND SHE HAS TO ASK FOR IT IF NEED OR IF SHE CHANGES HER MIND, VERBALIZED UNDERSTANDING. ALSO INSTRUCTED ON INCREASING ORAL INTAKE OF FLUIDS AND IMPORTANCE OF INCREASING ACTIVITY IN FACILITATING HAVING BM, VERBALIZED UNDERSTANDING AND STATES THAT SHE WILL AMBULATE IN [place] WITH RN AT THIS TIME.
--- NOTE | 2016-10-04 21:49 | NUR ---
PT AMBULATED WITH RN FROM ROOM TO FRONT OF [facility], PT HAD TO SIT IN CHAIR TO REST FOR 5 MINUTES BEFORE AMBULATING BACK TO ROOM, REQUIRED SEVERAL PERIODS OF REST WHILE STANDING ALSO. REPORTS THAT PAIN MEDICATION HAS EASED PAIN "A LOT" RATING 6/10 CURRENTLY. UPON RETURNING TO ROOM, PT STATES THAT INCISION IS BURNING INSTRUCTED THIS IS NORMAL, REQUESTED ICE PACK TO APPLY TO INCISION AND ALSO REQUESTED APPLESAUCE AND SANDWICH TRAY. NO SANDWICH TRAY AVAILABLE ON UNIT, CALLED GTA. PER GTA SHE WILL BRING A SANDWICH TRAY TO UNIT.
--- NOTE | 2016-10-04 22:03 | NUR ---
SANDWICH TRAY AND ICE PACK GIVEN PER REQUEST. PT SITTING UP IN CHAIR AT BEDSIDE AT THIS TIME. DISCUSSED REAPPLYING SCD'S, PT REFUSED AT THIS TIME STATING THAT THEY GET TO THIGH ON HER LEGS AND CAUSE THEM TO HURT. EXPLAINED THAT SCD'S ARE USED TO PREVENT BLOOD CLOTS, VERBALIZED UNDERSTANDING AND CONTINUED TO DECLINE SCD'S.
--- NOTE | 2016-10-04 23:40 | NUR ---
ROUNDS MADE. PT RESTING WITH EYES CLOSED AT THIS TIME. RESPIRATIONS REGULAR, NO S/S OF DISTRESS NOTED. BED IN LOW POSITION WITH UPPER SIDE RAILS RAISED X2. CL/PHONE WITHIN REACH IN BEDSIDE TABLE.
[2016-10-05 01:46] VITALS: BP 129/69
--- NOTE | 2016-10-05 01:49 | NUR ---
ROUNDS MADE. VSS. UPON ENTER ROOM PT USING INCENTIVE SPIROMETER. REPORTS THAT PAIN 03/27, REQUESTED DEMEROL TABS STATING THAT THEY WORK BETTER FOR HER PAIN. REPORTS THAT ICE PACK HAS ALSO HELPED. ICE WATER AND SPRITE GIVEN PER REQUEST. DENIES ADDITIONAL NEEDS AT THIS TIME.
--- NOTE | 2016-10-05 02:40 | NUR ---
PAIN REASSESSMENT COMPLETED. PT RESTING WITH EYES CLOSED. RESPIRATIONS REGULAR, NO S/S OF DISTRESS NOTED. BED IN LOW POSITION WITH UPPER SIDE RAILS RAISED X2. CL/PHONE WITHIN REACH.
--- NOTE | 2016-10-05 02:54 | NUR ---
PT REQUESTED MOTRIN FOR ABD CRAMPING AND INCISIONAL BURNING. PAIN 5/10. GIVEN PER REQUEST, SEE EMAR. DENIES ADDITIONAL NEEDS AT THIS TIME. INCENTIVE SPIROMETER DONE WITH RN AT BEDSIDE. PT REPORTS THAT SHE IS CONTINUING TO PASS FLATUS AND IS VOIDING WITHOUT DIFFICULTY. QUESTIONS ANSWERED REGARDGING LOVENOX. INSTRUCTION PROVIDED ON ADMINISTERING INJ, VERBALIZED UNDERSTANDING ADN REQUESTED TO GIVE SELF INJECTION IN A.M, WILL PASS ON IN REPORT. DENIES ADDITIONAL NEEDS AT THIS TIME.
--- NOTE | 2016-10-05 03:42 | NUR ---
PAIN REASSESSMENT COMPLETED. PT RESTING WITH EYES CLOSED. RESPIRATIONS REGULAR. NO S/S OF DISTRESS NOTED.
--- NOTE | 2016-10-05 05:23 | NUR ---
ROUNDS MADE. PT RESTING WITH EYES CLOSED. RESPIRATIONS REGULAR. NO S/S OF DISTRESS NOTED. HOB ELEVATED AT 30 DEGREES. BED IN LOW POSITION WITH UPPER SIDE RAILS RAISED X2. CL/PHONE WITHIN REACH.
--- NOTE | 2016-10-05 05:52 | NUR ---
DR. BELTRE ON UNIT. NOTIFIED OF COUGH AND PRODUCTIVE COUGH WITH GREEN SPUTUM.
--- NOTE | 2016-10-05 06:23 | NUR ---
DR. BELTRE AT BEDSIDE DISCUSSING PLAN OF CARE WITH PATIENT AND ANSWERING QUESTIONS. ABD BINDER LOOSENED PER DR. BELTRE.
[2016-10-05 06:30] VITALS: BP 121/78
--- NOTE | 2016-10-05 06:30 | NUR ---
FSBS 83, HUMALOG NOT GIVEN, SEE EMAR. PAIN 02/24, INTERMITTENT ABD CRAMPING WITH SORENESS AND ACHING AND INCISIONAL BURNING. PT REPORTS THAT SHE HAD JUST TAKEN ICE PACK OFF OF INCISION. REQUEST DEMEROL FOR PAIN, GIVEN PER ORDERS/REQUEST, SEE EMAR. ICE WATER GIVEN. DENIES ADDITIONAL NEEDS. ENCOURAGED TO AMBULATE, PT DECLINES AT THIS TIME STATING THAT SHE ISN'T GETTING UP UNTIL AFTER BREAKFAST. BED IN LOW POSITION WITH UPPER SIDE RAILS X2. CL/PHONE WITHIN REACH.
--- NOTE | 2016-10-05 07:00 | NUR ---
ASSUMED CARE OF THIS PATIENT AFTER RECEIVING REPORT FROM PM SHIFT. VISITED ROOM. PT CURRENTLY RESTING EYES CLOSED, RESP EVEN, HOB ELEVATED 30 DEGREES. SIDE RAILS UP X 2, CALL LIGHT IN REACH. WILL COMPLETE SHIFT ASSESSMENT AFTER AWAKE. ORDERS RECEIVED FOR DEC FROM DR BELTRE.
--- NOTE | 2016-10-05 07:20 | NUR ---
UP TO BATHROOM TO VOID.
--- NOTE | 2016-10-05 07:44 | NUR ---
SITTING UP IN CHAIR FOR BREAKFAST. VOIDED WITHOUT DIFFICULTY, DENIES BM. SAYS SHE HAS BEEN PASSING GAS. /10 INCISIONAL "ACHING". SAYS SHE HAS SLIGHT COOPER. OFFERED MOTRIN FOR RELIEF.
[2016-10-05] MEDS ORDERED: LOVENOX40 MG/0.4 SC ×2 (07:46→07:59)
[2016-10-05] MEDS ORDERED: ESTRACE 0.5 MG0.5 MG PO (07:49)
[2016-10-05] MEDS ORDERED: IBUPROFEN600 MG PO (07:50)
[2016-10-05] MEDS ORDERED: PERCOCET 5-3251 TAB PO (07:52)
[2016-10-05] MEDS ORDERED: ZPAK PO (07:54)
--- NOTE | 2016-10-05 08:49 | NUR ---
INSTRUCTED ON LOVENOX ADMINISTRATION AND WRITTEN INFORMATION GIVEN. REVIEWED DANGER SIGNS, PROCEDURE AND TIMES FOR ADMINISTRATION. PATIENT DEMONSTRATED PROPER ADMINISTRATION OF LOVENOX SUBQ IN RUOQ OF ABDOMEN. DISCUSSED ROTATION OF SITES. SIGNIFICANT OTHER PRESENT AND ALSO OBSERVED ADMINISTRATION. WILL COMPLETE DC INSTRUCTIONS AND PLAN FOR DC HOME TODAY.
--- NOTE | 2016-10-05 09:45 | NUR ---
VERBAL AND WRITTEN DC INSTRUCTIONS COMPLETED INCLUDING POST-OP CARE, MEDICATION ADMINSTRATION, DANGER SIGNS/SIDE EFFECTS, S&S OF INFECTION, INCISION CARE, PREVENTION OF URI, THROMBOSIS, INFECTIONS. TO MAKE FU APPOINTMENTS FOR STAPLE REMOVAL AND KEEP F/U APPOINTMENTS SCHEDULED OR RESCHEDUL NEEDED. SIGNIFICANT OTHER PRESENT. NO SPECIFIC QUESTIONS AT THIS TIME. TO CONTACT MD OFFICE OR CALL L&D IF ANY QUESTIONS OR CONCERNS. VERBALIZED UNDERSTANDING.
--- NOTE | 2016-10-05 10:00 | NUR ---
DC'D TO CAR VIA WHEELCHAIR. ALL BELONGINGS REMOVED FROM ROOM. HAS INSTRUCTIONS AND PRESCRIPTIONS.
--- NOTE | 2016-11-28 06:50 | DS ---
PATIENT:MANOHAR ARZATE :83 MEDICAL RECORD: [id number] DISCHARGE SUMMARY ADMISSION DATE: 10/02/16 DISCHARGE DATE: 10/05/16 HOSPITAL COURSE: The patient was admitted on 10/02/2016. The patient was admitted at that time for TAHBSO with Dr. Almonte. Per Dr. Almonte's H&P, the patient had history of seizures at age 9-10, history of diabetes, history of chronic hypertension, history of edema, history of previous surgeries including , endometrial biopsy, hysteroscopy, D&C and apparently tubal ligation. The patient had no known allergies. Medications included metformin, naproxen, Robaxin, [place] 7.5, ibuprofen and lisinopril. The patient had significant family history for parents and siblings with cardiovascular disease. The patient reported social history negative times 3. TAHBSO was performed by Dr. Almonte. Operative report is on the chart. Per the chart, the patient did well overnight on postop day #0. On the morning of postop day #1, vital signs revealed an afebrile patient with a pulse under 110. Blood pressures ranged from 129-157/62-86. Pulse ox between 94% and 100%. I's and O's were adequate. Postop labs revealed a postop hemoglobin of 10.3, white blood cell count of 11.7. On exam, per the record, the patient was doing well. No significant findings documented by Dr. Almonte. On the morning of postop day #2, the patient was noted to be slow to ambulate. The patient had been started on Lovenox prevention of DVT. Hemoglobin was stable at 10.4, creatinine was found to be 0.8, which was within normal limits. I's and O's were adequate. Vital signs were stable. The patient was started on her home blood pressure medicines with blood pressures ranging on day #2 from 129-155/62-80. I assumed care on the morning of postop day #3, status post TAHBSO. Vital signs remained stable. The patient was afebrile. Incision was clean, dry and intact. The patient had a productive cough overnight. Lungs are clear to auscultation. The patient was discharged home with a Z-Juan for suspected bronchitis. Lower extremities were free of erythema or swelling. The patient was discharged home on postoperative day #3 with instructions to follow up with Dr. Almonte as per her instructions. TRANSINT:[id number] Voice Confirmation ID: [id number] DOCUMENT ID: [id number] LORNA BELTRE MD at 0649 CC: [id number] DICTATION DATE: 11/23/16 0836 [employer] SOCIAL MEDIA MANAGER: 11/23/16 1611 DIS IN 10/05/[address] [address]
== END 2016-10-05 10:00 | disposition home or self-care (01) | DRG 742 ==
LOC: D.SDCHOLD 05:09 → D.WS 10:18 → D.LD 18:21 → D.WS 10-03 14:34 → D.LD 10-04 15:01
PROVIDERS: Family Medicine; ADMIT Obstetrics & Gynecology
PROC: 0UT20ZZ Resection of Bilateral Ovaries, Open Approach (ICD-10-PCS; 2016-10-02)
PROC: 0UT70ZZ Resection of Bilateral Fallopian Tubes, Open Approach (ICD-10-PCS; 2016-10-02)
PROC: 0UT90ZZ Resection of Uterus, Open Approach (ICD-10-PCS; principal; 2016-10-02 07:30)
PROC: 0UTC0ZZ Resection of Cervix, Open Approach (ICD-10-PCS; 2016-10-02 07:30)
DX: D25.9 Leiomyoma of uterus, unspecified (principal); D62 Acute posthemorrhagic anemia; Z68.43 Body mass index [BMI] 50.0-59.9, adult; N93.9 Abnormal uterine and vaginal bleeding, unspecified; D72.829 Elevated white blood cell count, unspecified; E11.65 Type 2 diabetes mellitus with hyperglycemia; I10 Essential (primary) hypertension; E66.01 Morbid (severe) obesity due to excess calories

== ENCOUNTER 2016-10-08 18:10 | Emergency (ER) | payer MEDICAID ==
[2016-10-02 15:10] VITALS: BMI 54.6
[~2016-10-08 18:10] MED LIST changes: +ESTRACE 0.5 MG0.5 MG PO; +IBUPROFEN200 MG PO; +IBUPROFEN600 MG PO; +LISINOPRIL5 MG PO; +LOVENOX40 MG/0.4 SC; +ZPAK PO
[2016-10-08 19:45] LABS: BASOPHILS 0.6 % (0.0-2.0); EOSINOPHILS 3.9 % (0-7); HEMATOCRIT 33.9 % (36.0-48.0); HEMOGLOBIN 10.8 g/dL (12-16); IMMATURE GRANULOCYTES 0.4 % (0-5); LYMPHOCYTES 21.5 % (15-50); MCH 28.7 pg (26.0-34.0); MCHC 31.9 g/dL (31.0-37.0); MCV 90.2 fL (80.0-100.0); MEAN PLATELET VOLUME 9.5 fL (7.4-10.4); MONOCYTES 7.3 % (2-11); NEUTROPHILS 66.3 % (40-80); PLATELET COUNT 357 10x3/uL (130-400); RBC 3.76 10x6/uL (4.00-5.40); WBC 12.7 10x3/uL (4.8-10.8)
== END 2016-10-08 21:32 | disposition home or self-care (01) ==
LOC: D.ER 18:10
PROVIDERS: Emergency Medicine
DX: G89.18 Other acute postprocedural pain (principal); E11.9 Type 2 diabetes mellitus without complications; I10 Essential (primary) hypertension

== ENCOUNTER 2016-10-12 15:09 | Emergency (ER) | payer MEDICAID ==
[2016-10-02 15:10] VITALS: BMI 54.6
[2016-10-12 17:04] LABS: BASOPHILS 0.5 % (0.0-2.0); EOSINOPHILS 2.8 % (0-7); HEMATOCRIT 33.2 % (36.0-48.0); HEMOGLOBIN 10.5 g/dL (12-16); IMMATURE GRANULOCYTES 0.6 % (0-5); LYMPHOCYTES 20.2 % (15-50); MCH 28.5 pg (26.0-34.0); MCHC 31.6 g/dL (31.0-37.0); MCV 90.2 fL (80.0-100.0); MEAN PLATELET VOLUME 8.9 fL (7.4-10.4); MONOCYTES 6.4 % (2-11); NEUTROPHILS 69.5 % (40-80); PLATELET COUNT 384 10x3/uL (130-400); RBC 3.68 10x6/uL (4.00-5.40); RDW 12.9 % (11.5-14.5)
== END 2016-10-12 17:31 | disposition home or self-care (01) ==
LOC: D.ER 15:09
PROVIDERS: Physician Assistant
DX: G89.18 Other acute postprocedural pain (principal); I10 Essential (primary) hypertension; R11.0 Nausea; E11.9 Type 2 diabetes mellitus without complications

== ENCOUNTER 2016-10-14 16:56 | Emergency (ER) | payer MEDICAID ==
[2016-10-02 15:10] VITALS: BMI 54.6
[2016-10-14 20:45] LABS: APPEARANCE CLEAR (CLEAR); BILIRUBIN NEGATIVE (NEGATIVE); COLOR YELLOW (YELLOW); GLUCOSE NEGATIVE (NEGATIVE); KETONE NEGATIVE (NEGATIVE); LEUKOCYTE ESTERASE NEGATIVE (NEGATIVE); NITRITE NEGATIVE (NEGATIVE); PROTEIN NEGATIVE (NEGATIVE); SPECIFIC GRAVITY 1.015 (1.005-1.020); UROBILINOGEN NORMAL (NORMAL)
[2016-10-14 20:45] LABS: BASOPHILS 0.4 % (0.0-2.0); HEMATOCRIT 35.6 % (36.0-48.0); HEMOGLOBIN 11.4 g/dL (12-16); IMMATURE GRANULOCYTES 0.5 % (0-5); LYMPHOCYTES 17.3 % (15-50); MCH 28.8 pg (26.0-34.0); MCV 89.9 fL (80.0-100.0); MEAN PLATELET VOLUME 9.2 fL (7.4-10.4); MONOCYTES 5.5 % (2-11); NEUTROPHILS 74.3 % (40-80); PLATELET COUNT 409 10x3/uL (130-400); RBC 3.96 10x6/uL (4.00-5.40); WBC 15.9 10x3/uL (4.8-10.8)
[2016-10-14 21:30] LABS: ALBUMIN 3.5 g/dL (3.4-5.0); ALKALINE PHOSPHATASE 70 U/L (46-116); ALT (SGPT) 27 U/L (10-68); BILIRUBIN - TOTAL 0.21 mg/dL (0.2-1.3); CALC OSMOLALITY 281 mosm/kg (275-300); CALCIUM 9.4 mg/dL (8.5-10.1); CARBON DIOXIDE 27.8 mmol/L (21.0-32.0); CHLORIDE - SERUM 103 mmol/L (98-107); CREATININE - SERUM 0.8 mg/dL (0.6-1.3); GLUCOSE 82 mg/dL (74-106); POTASSIUM - SERUM 4.2 mmol/L (3.5-5.1); PROTEIN - SERUM 7.8 g/dL (6.4-8.2); SODIUM 142 mmol/L (136-145); UREA NITROGEN 13 mg/dL (7-18); eGFR NON AFRICAN AMERICAN 88 mL/min (90-120)
== END 2016-10-14 23:55 | disposition home or self-care (01) ==
LOC: D.ER 16:56
PROVIDERS: Nurse Practitioner Family
DX: T81.4XXA Infection following a procedure, initial encounter (principal); L08.9 Local infection of the skin and subcutaneous tissue, unspecified; E11.9 Type 2 diabetes mellitus without complications; I10 Essential (primary) hypertension

== ENCOUNTER 2017-02-17 14:25 | Emergency (ER) | payer MEDICAID ==
[2016-10-02 15:10] VITALS: BMI 54.6
[2017-02-17 15:17] LABS: APPEARANCE CLEAR (CLEAR); BILIRUBIN NEGATIVE (NEGATIVE); COLOR YELLOW (YELLOW); GLUCOSE 1000 mg/dL (NEGATIVE); KETONE NEGATIVE (NEGATIVE); LEUKOCYTE ESTERASE TRACE (NEGATIVE); NITRITE NEGATIVE (NEGATIVE); PROTEIN NEGATIVE (NEGATIVE); SPECIFIC GRAVITY 1.015 (1.005-1.020); UROBILINOGEN NORMAL (NORMAL)
[2017-02-17 15:18] LABS: BACTERIA MODERATE /hpf (NONE SEEN); EPITHELIAL CELLS 0-5 /hpf (0-5); RED CELLS - URINE 0-5 /hpf (0-5)
[2017-02-17 15:19] LABS: YEAST <1+ /hpf (NONE SEEN)
[2017-02-17 15:22] LABS: BASOPHILS 0.8 % (0-2); EOSINOPHILS 2.2 % (0-7); HEMATOCRIT 40.5 % (36.0-48.0); HEMOGLOBIN 13.4 g/dL (12-16); IMMATURE GRANULOCYTES 0.1 % (0-5); LYMPHOCYTES 33.7 % (15-50); MCH 28.1 pg (26.0-34.0); MCHC 33.1 g/dL (31.0-37.0); MCV 84.9 fL (80.0-100.0); MEAN PLATELET VOLUME 11.1 fL (7.4-10.4); NEUTROPHILS 56.2 % (40-80); RBC 4.77 10x6/uL (4.00-5.40); RDW 14.4 % (11.5-14.5); WBC 7.7 10x3/uL (4.8-10.8)
[2017-02-17 15:29] LABS: PLATELET COUNT 286 10x3/uL (130-400)
[2017-02-17 15:35] LABS: ALBUMIN 3.6 g/dL (3.4-5.0); ALKALINE PHOSPHATASE 103 U/L (46-116); ALT (SGPT) 91 U/L (10-68); CALC OSMOLALITY 293 mosm/kg (275-300); CALCIUM 9.5 mg/dL (8.5-10.1); CARBON DIOXIDE 26.5 mmol/L (21.0-32.0); CHLORIDE - SERUM 102 mmol/L (98-107); POTASSIUM - SERUM 4.5 mmol/L (3.5-5.1); PROTEIN - SERUM 8.1 g/dL (6.4-8.2); SODIUM 138 mmol/L (136-145); UREA NITROGEN 10 mg/dL (7-18); eGFR NON AFRICAN AMERICAN 68 mL/min (90-120)
[2017-02-17 15:39] LABS: GLUCOSE 435 mg/dL (74-106)
[2017-02-17 15:43] LABS: KETONE - SERUM NEGATIVE (NEGATIVE)
== END 2017-02-17 17:03 | disposition home or self-care (01) ==
LOC: D.ER 14:25
PROVIDERS: Family Medicine; Nurse Practitioner Family
DX: E11.65 Type 2 diabetes mellitus with hyperglycemia (principal); I10 Essential (primary) hypertension

== ENCOUNTER 2017-08-24 00:16 | Emergency (ER) | payer MEDICAID ==
[2016-10-02 15:10] VITALS: BMI 54.6
== END 2017-08-24 01:23 | disposition home or self-care (01) ==
LOC: D.ER 00:16
DX: R51 Headache (principal); I10 Essential (primary) hypertension; E11.9 Type 2 diabetes mellitus without complications

== ENCOUNTER → 2017-10-14 16:12 | Outpatient (CLI) | payer MEDICAID ==
[2016-10-02 15:10] VITALS: BMI 54.6
== END | disposition home or self-care (01) ==
LOC: D.MAMMO 09:30
DX: N64.4 Mastodynia (principal); N64.52 Nipple discharge

== ENCOUNTER 2018-06-01 21:44 | Emergency (ER) | payer MEDICAID ==
[~2018-06-01] VITALS: Ht 165.1 cm; Wt 125.0 kg
[2018-06-01 21:48] VITALS: Ht 165.1 cm; Wt 125.0 kg
[2018-06-01] MEDS ORDERED: TORADOL10 MG PO (22:15)
[2018-06-01 22:39] VITALS: BP 132/84
== END 2018-06-01 22:39 | disposition home or self-care (01) ==
LOC: D.ER 21:44
DX: S69.91XA Unspecified injury of right wrist, hand and finger(s), initial encounter (principal); W20.8XXA Other cause of strike by thrown, projected or falling object, initial encounter; Y93.89 Activity, other specified; Y92.019 Unspecified place in single-family (private) house as the place of occurrence of the external cause; G40.909 Epilepsy, unspecified, not intractable, without status epilepticus; E11.9 Type 2 diabetes mellitus without complications; I10 Essential (primary) hypertension

== ENCOUNTER → 2018-09-16 11:32 | Outpatient (CLI) | payer MEDICAID ==
[2018-06-01 21:48] VITALS: BMI 45.8
[~2018-09-16 11:32] MED LIST changes: +ASPIRIN81 MG PO; +COREG6.25 MG PO; +ENTRESTO 24 MG1 EACH PO; +JANUMET XR 1001 EACH PO; +LEVEMIR FL100 UNIT/1 SC; +LIPITOR10 MG PO; +LISINOPRIL2.5 MG PO; +TORADOL10 MG PO
== END | disposition home or self-care (01) ==
LOC: D.HCCARDIO 11:30
DX: I20.9 Angina pectoris, unspecified (principal)

== ENCOUNTER 2018-09-22 11:36 | Outpatient (CLI) | payer MEDICAID ==
[~2018-09-22] VITALS: Ht 165.1 cm; Wt 138.6 kg
--- NOTE | ~2018-09-22 | HEMODYNAMI ---
PATIENT:MANOHAR ARZATE MEDICAL RECORD: [id number] : 83 LOCATION:[facility] ADMISSION DATE: 09/22/18 Generatedon:09/22/201813:32 Patient name: MANOHAR ARZATE Patient #: [id number] SSN: : 1985 Date of study: 09/22/2018 Page: Of Hemodynamic Procedure Report Patient Data Patient Demographics Procedure consent was obtained First Name: MANOHAR Gender: Female Last Name: HUEY : 1985 Middle Initial: BERTIN Age: 32 year(s) Patient #: [id number] Race: Black Additional ID: [id number] Contact details Address: [address] [place] [address] State: [place] City: [place] Zip code: [address] Past Medical History Allergies: No known allergies Admission Admission Data Admission Date: 09/22/2018 Admission Time: 11:36 Height (in.): 65 BSA: 2.38 (m2) Height (cm.): 165.1 BMI: 51.42 (kg/m2) Weight (lbs.): 309 Weight (kg.): 140.16 Lab Results Lab Result Date: 09/22/2018 Lab Result Time: 0:00 Biochemistry Name Units Result Min Max BUN mg/dl 9 --(*---)-- 7 18 Creatinine mg/dl 1 --(--*-)-- 0.6 1.3 CBC Name Units Result Min Max Hemoglobin g/dl 12.9 -*(----)-- 13.5 17.5 Procedure Procedure Types Cath Procedure Diagnostic Procedure [facility] w/Coronaries Procedure Description Procedure Date Procedure Date: 09/22/2018 Procedure Start Time: 13:17 Procedure End Time: 13:28 Procedure Staff Name Function Kristopher Zhang MD Performing Physician Deborah Cuevas RT Scrub Kennedy Crowe RT Scrub Fariba Mendoza RT Monitor Venu Tobin RN Nurse Jey Lorigan RN Nurse Procedure Data Cath Procedure Fluoroscopy Diagnostic fluoroscopy Total fluoroscopy Time: 2.7 time: 2.7 min min Diagnostic fluoroscopy Total fluoroscopy dose: 808 dose: 808 mGy mGy Contrast Material Contrast Material Type Amount (ml) Isovue 300 85 Entry Location Entry Primary Successful Side Size Upsize Upsize Entry Closure Wagner ccessful Closure Location (Fr) 1 (Fr) 2 (Fr) Remarks Device Remarks Radial Right 6 Fr Mechanical artery Short Compression Estimated blood loss: 5 ml Diagnostic catheters Device Type Used For End Catheter Placement DIAGNOSTIC [place] 110cm 5 Procedure Fr catheter ([id number]) Procedure Complications No complications Procedure Medications Medication Administration Route Dosage Oxygen etCO2 Nasal cannula 2 l/min Heparin Flush Bag added to field 2 bags (1000units/500ml NS) 0.9% NaCl I.V. 100 ml/hr Lidocaine 2% added to field 20 Radial Cocktail added to field 1 syringe (Verapomil 2mg/Nitro 400mcg/Heparin 1500units) Fentanyl I.V. 50 mcg Versed I.V. 1 mg Radial Cocktail I.A. 1 syringe (Verapomil 2mg/Nitro 400mcg/Heparin 1500units) Fentanyl I.V. 50 mcg Versed I.V. 1 mg Lopressor I.V. 5 mg Hemodynamics Rest BSA: 2.38 (m2) HGB: 12.9 (g/dl) O2 Consumption: Estimated: 266.73 (ml/min) O2 Co nsumption indexed: Estimated:112.07 (ml/min/m) Heart Rate: 89 (bpm) Pressure Samples Time Site Value (mmHg) Purpose Heart Use Rate(bpm) 13:20 LV 164/-13,5 Snapshot 110 Gradients Valve Time Site Site Mean SEP/DFP Peak To Heart Use 1 2 (mmHg) (sec/min) Peak Rate (mmHg) (bpm) Aortic 13:21 LV AO 106 Snapshots Pre Cath Intra NCS Post Cath Vital Signs Time Heart Resp SPO2 etCO2 NIBP (mmHg) Rhythm Pain Sedation Rate (ipm) (%) (mmHg) Status Level (bpm) 12:56:50 92 14 97 0 189/115(154) NSR 0 (11) 10(A) , No pain 13:01:45 91 16 100 0 174/114(140) NSR 0 (11) 10(A) , No pain 13:06:44 88 17 100 38.8 Measuring NSR 0 (11) 10(A) , No pain 13:08:08 88 16 100 38 Time NSR 0 (11) 10(A) Exceeded , No pain 13:13:07 100 17 100 38 190/122(154) NSR 0 (11) 10(A) , No pain 13:18:06 97 17 94 41 192/131(146) NSR 0 (11) 9(A) , No pain 13:22:57 102 17 92 39.5 170/113(138) NSR 0 (11) 9(A) , No pain 13:27:46 95 17 97 32.8 159/99(137) NSR 0 (11) 9(A) , No pain 13:32:28 93 28 98 34.3 178/119(145) NSR 0 (11) 9(A) , No pain Medications Time Medication Route Dose Verified Delivered Reason Notes Effectiveness by by 13:11:33 Oxygen etCO2 2 l/min Kristopher Venu Per Nasal Vicente Tobin RN physician cannula 13:11:41 Heparin Flush added 2 bags Kristopher Venu used for Bag to Vicente Tobin full service vending driver (1000units/500ml field NS) 13:11:49 0.9% NaCl I.V. 100 Kristopher Venu Per ml/hr Vicente Tobin RN physician 13:11:59 Lidocaine 2% added 20ml Kristopher Venu used for to vial Vicente Tobin full service vending driver field 13:12:08 Radial Cocktail added 1 Kristopher Venu used for (Verapomil to syringe Vicente Tobin full service vending driver 2mg/Nitro field 400mcg/Heparin 1500units) 13:15:41 Fentanyl I.V. 50 mcg Kristopher Venu for sedation Vicente Tobin RN 13:15:47 Versed I.V. 1 mg Kristopher Venu for sedation Vicente Tobin RN 13:18:26 Radial Cocktail I.A. 1 Kristopher Kristopher for (Verapomil syringe Vicente Zhang MD vasodilation 2mg/Nitro 400mcg/Heparin 1500units) 13:18:33 Fentanyl I.V. 50 mcg Kristopher Venu for sedation Vicente Tobin RN 13:18:38 Versed I.V. 1 mg Kristopher Venu for sedation Vicente Tobin RN 13:22:04 Lopressor I.V. 5 mg Kristopher Tobin RN physician Procedure Log Time Note 12:36:00 Deborah Mason RT(R) sent for patient. Start room use. 12:41:34 Signed procedure consent form obtained from patient. 12:41:35 Time tracking: Regular hours (M-F 7:00 - 5:00) 12:41:40 Plan of Care:Hemodynamics will remain stable., Cardiac rhythm will remain stable., Comfort level will be maintained., Respiratory function will remain adequate., Patient/ family verbilizes understanding of procedure., Procedure tolerated without complication., Recovers from procedure without complications.. 12:41:44 Diagnostic Cath status Elective 12:42:15 H&P Date Dictated: 09/09/2018 Within 30 days and on chart., H&P Addendum completed by physician on day of procedure. (MUST COMPLETE FOR ALL OUTPATIENTS). 12:42:22 Patient allergic to No known allergies 12:42:38 Patient Height : 65 inches 12:42:41 Patient Weight : 309 lbs 12:45:53 Lab Result : BUN 9 mg/dl 12:45:53 Lab Result : Creatinine 1 mg/dl 12:45:53 Lab Result : Hemoglobin 12.9 g/dl 12:49:47 Patient received from Pre/Post Procedure Room to CCL 1 Alert and oriented. Tansferred to table in Supine position. 12:49:48 Warm blankets applied, and connor hugger turned on for patient comfort. 12:49:48 Correct patient and procedure confirmed by team. 12:49:49 ECG and BP/O2 sat monitors applied to patient. 12:55:12 Vital chart was started 13:05:11 Baseline sample Acquired. 13:05:16 Rhythm: sinus rhythm 13:05:17 Full Disclosure recording started 13:05:17 Pre-procedure instructions explained to patient. 13:05:18 Pre-op teaching completed and patient verbalized understanding. 13:05:19 Family in patients room. 13:05:21 Patient NPO since Midnight. 13:05:28 Is patient on blood thinner?No 13:05:54 Patient diabetic? Yes. 13:05:56 If diabetic: On Metformin? No 13:06:11 Patient not . Patient has had hysterectomy. 13:06:14 Previous problem with sedation/anesthesia? No ? 13:06:17 Snore? Yes 13:06:19 Sleep apnea? No 13:06:20 Deviated septum? No 13:06:22 Opens mouth fully? Yes 13:06:23 Sticks out tongue? Yes 13:06:25 Airway obstruction? No ? 13:06:27 Dentures? No ? 13:06:29 Modified Ra's test Ulnar < 7 seconds 13:06:32 Patient pain scale 0/10 ?. 13:06:40 IV patent on arrival in left hand with 0.9% NaCl at [facility]. 13:06:43 Lab results completed and on chart. 13:06:48 Right Radial & Right Groin area was prepped with chlora-prep and draped in sterile fashion 13:06:49 Alarms reviewed by R. N. 13:06:49 Sharps counted by scrub and verified by R.N. 13:06:51 Use device set Radial Dx or PCI 13:06:52 Medline Cath Pack ([id number]) opened to sterile field. 13:06:55 ACIST Syringe (07628) opened to sterile field. 13:06:57 ACIST Hand Control (27515) opened to sterile field. 13:06:57 ACIST Manifold (97915) opened to sterile field. 13:06:58 Tegaderm 4 x 4 (1626W) opened to sterile field. 13:07:00 Bag Decanter (2001S) opened to sterile field. 13:07:02 DIAGNOSTIC WIRE .035 260cm J wire (963052) opened to sterile field. 13:07:04 NEEDLE Cook 21G 4cm Radial (S47805) opened to sterile field. 13:07:05 SHEATH 6FR Slender (80-1060) opened to sterile field. 13:08:53 --------ALL STOP TIME OUT------ 13:08:54 Final Timeout: patient, procedure, and site verified with staff and physician. All members of the team are in agreement. 13:08:56 Right Radial & Right Groin site verified by team. 13:09:00 Fire Safety Assessment: A--An alcohol-based skin anteseptic being used preoperatively., C--Open oxygen or nitrous oxide is being used., D--An ESU, laser, or fiber-optic light is being used. 13::03 Physical assessment completed. ASA score P 2 - A patient with mild systemic disease as per Kristopher Zhang MD. 13:09:06 Sedation plan: IV Moderate Sedation Medication:Versed, Fentanyl 13:11:19 Vital chart was stopped 13:11:20 Vital chart was started 13:11:33 Oxygen 2 l/min etCO2 Nasal cannula was administered by Venu Tobin RN; Per physician; 13:11:41 Heparin Flush Bag (1000units/500ml NS) 2 bags added to field was administered by Venu Tobin RN; used for procedure; 13:11:49 0.9% NaCl 100 ml/hr I.V. was administered by Venu Tobin RN; Per physician; 13::59 Lidocaine 2% 20ml vial added to field was administered by Venu Tobin RN; used for procedure; 13:12:08 Radial Cocktail (Verapomil 2mg/Nitro 400mcg/Heparin 1500units) 1 syringe added to field was administered by Venu Tobin RN; used for procedure; 13:13:59 Procedure started. 13:15:41 Fentanyl 50 mcg I.V. was administered by Venu Tobin RN; for sedation; 13:15:47 Versed 1 mg I.V. was administered by Venu Tobin RN; for sedation; 13:17:26 Local anesthetic to right radial artery with Lidocaine 2% by Kristopher Zhang MD.INITIAL ACCESS ONLY 13:17:35 A 6 Fr Short sheath was inserted into the Right Radial artery 13:18:26 Radial Cocktail (Verapomil 2mg/Nitro 400mcg/Heparin 1500units) 1 syringe I.A. was administered by Kristopher Zhang MD; for vasodilation; 13:18:33 Fentanyl 50 mcg I.V. was administered by Venu Tobin RN; for sedation; 13:18:38 Versed 1 mg I.V. was administered by Venu Tobin RN; for sedation; 13:19:02 A DIAGNOSTIC [place] 110cm 5 Fr catheter ([id number]) was advanced over the wire and used for Procedure. 13:19:49 LV gram done using SINGH 13:19:53 Injector settings: Ml/sec: 7, Volume: 15, 13:20:26 LV hemodynamics recorded. 13:21:41 EF : 35 % 13:22:04 Lopressor 5 mg I.V. was administered by Venu Tobin RN; Per physician; 13:24:00 LCA angiography performed. 13:24:35 RCA angiography performed. 13:25:27 Catheter removed. 13:25:32 Procedure ended.(Physican Out) 13:26:20 TR BAND Large ([id number]) opened to sterile field. 13:26:31 Sheath removed intact; hemostasis achieved with Mechanical Compression to the Right Radial artery. 13::35 Fluoroscopy time 02.70 minutes. 13::39 Fluoroscopy dose: 808 mGy 13::39 Flurop Dose total: 808 13:26:58 Contrast amount:Isovue 300 85ml. 13:27:08 TR band inflated with 13cc of air. 13:27:11 Post-procedure physical assessment completed. ASA score P 2 - A patient with mild systemic disease as per Kristopher Zhang MD. 13:27:16 Post procedure rhythm: sinus rhythm 13:27:21 Estimated blood loss: 5 ml 13:27:23 Post procedure instruction explained to patient.Patient verbalizes understanding. 13:27:23 Patient needs reinforcement of post procedure teaching. 13:28:35 Procedure and supply charges have been captured, reviewed, submitted and are correct. 13:28:37 Procedure Complication : No complications 13:28:39 See physician's report for complete and final results. 13:28:40 Report given to Pre/Post Procedure Room. 13:28:43 Patient transfered to Pre/Post Procedure Room with Bed. 13:28:45 Procedure ended. 13:28:45 Full Disclosure recording stopped 13:28:49 End room use (Document Last) 13:32:54 Vital chart was stopped Device Usage Item Name Manufacture Quantity Catalog Hospital Part Current Minimal Lot# / Number Charge Number Stock Stock Serial# Code Medline Medline 1 [id number] 25263 [id number] 5 Cath Pack ([id number]) ACIST Acist 1 88346 826311 730943 018325 20 Syringe Medical (22073) Systems Inc ACIST Hand Acist 1 48208 096683 151589 636208 5 Control Medical (51673) Systems Inc ACIST Acist 1 64407 677472 177423 195662 5 Manifold Medical (28830) Systems Inc Tegaderm 4 1 1626W 235184 058034 012994 5 x 4 (1626W) Bag Microtek 1 2001S 279375 39702 848193 5 [employer] () DIAGNOSTIC [facility] [place] 1 323552 436560 672272 531817 30 WIRE .035 260cm J wire (844002) NEEDLE Talenz [facility] 1 [id number] 279318 903819 209001 5 21G 4cm Radial (K29009) SHEATH 6FR Terumo 1 [id number] 973948 643814 090274 5 Slender (80-1060) DIAGNOSTIC Terumo 1 40-3025 658668 471831 289633 5 [place] 110cm 5 Fr catheter (326011) TR BAND Terumo 1 [id number] 791346 776505 664757 40 Large ([id number]) Signature Audit [place] Stage Time Signature Unsigned Intra-Procedure 09/22/2018 Fariba Mendoza 1:32:51 PM RT(R) Signatures Monitor : Fariba Mendoza Signature : RT Date : Time : [place] [id number] [place] [address]
[~2018-09-22 11:36] MED LIST changes: -ASPIRIN81 MG PO; -COREG6.25 MG PO; -ENTRESTO 24 MG1 EACH PO; -JANUMET XR 1001 EACH PO; -LEVEMIR FL100 UNIT/1 SC; -LIPITOR10 MG PO; -LISINOPRIL2.5 MG PO
[2018-09-22] MEDS ORDERED: JANUMET XR 1001 EACH PO (11:50)
[2018-09-22] MEDS ORDERED: LISINOPRIL2.5 MG PO (11:50)
[2018-09-22] MEDS ORDERED: LEVEMIR FL100 UNIT/1 SC (11:50)
[2018-09-22] MEDS ORDERED: LIPITOR10 MG PO (11:51)
[2018-09-22] MEDS ORDERED: ASPIRIN81 MG PO (11:52)
[2018-09-22 12:03] VITALS: BP 140/88; Ht 165.1 cm; Wt 138.6 kg
[2018-09-22 12:09] LABS: BASOPHILS 0.8 % (0-2); EOSINOPHILS 2.4 % (0-7); HEMATOCRIT 39.1 % (36.0-48.0); HEMOGLOBIN 12.9 g/dL (12-16); IMMATURE GRANULOCYTES 0.2 % (0-5); MCH 28.5 pg (26.0-34.0); MCV 86.3 fL (80.0-100.0); MEAN PLATELET VOLUME 9.7 fL (7.4-10.4); MONOCYTES 7.3 % (2-11); NEUTROPHILS 63.3 % (40-80); PLATELET COUNT 285 10x3/uL (130-400); RBC 4.53 10x6/uL (4.00-5.40); RDW 13.5 % (11.5-14.5); WBC 9.3 10x3/uL (4.8-10.8)
[2018-09-22 12:23] LABS: ANION GAP 11.2 mmol/L (8-16); CALCIUM 8.8 mg/dL (8.5-10.1); CARBON DIOXIDE 26.8 mmol/L (21.0-32.0)
[2018-09-22] MEDS ORDERED: COREG6.25 MG PO (13:58)
[2018-09-22] MEDS ORDERED: ENTRESTO 24 MG1 EACH PO (13:59)
--- NOTE | 2018-09-22 14:00 | NUR ---
NO FAMILY AT BEDSIDE. DR. SMITH ROUNDED ON PATIENT. PT STILL DROWSY. DOES FOLLOW COMMANDS. RIGHT RADIAL TR BAND IN PLACE. NO BLEEDING/HEMATOMA NOTED.
--- NOTE | 2018-09-22 14:30 | NUR ---
PT FAMILY AT BEDSIDE. UPDATED ON PT'S STATUS.
--- NOTE | 2018-09-22 14:35 | NUR ---
RIGHT RADIAL TR BAND IN PLACE. NO BLEEDING/HEMATOMA NOTED. 3cc OF AIR REMOVED FROM TR BAND. NO BLEEDING/HEMATOMA NOTED.
--- NOTE | 2018-09-22 14:46 | NUR ---
HEAD OF BED INC TO 30 DEGREES. PT ALERT AND ORIENTED. SET UP WITH SANDWICH TRAY AND DRINK. VSS.
--- NOTE | 2018-09-22 14:53 | NUR ---
3cc OF AIR REMOVED FROM TR BAND. NO BLEEDING/HEMATOMA NOTED. TOLERATING WELL. VSS.
--- NOTE | 2018-09-22 15:10 | NUR ---
LEFT AC PIV D/C'D WITH CATH TIP INTACT. PT TOLERATED WELL. DENIES NAUSEA.
--- NOTE | 2018-09-22 15:17 | NUR ---
PT AMBULATED TO RESTOOM. STEADY GAIT NOTED. VOIDED WITHOUT DIFFICULTY. RIGHT WRIST TR BAND REMOVED. DRESSING APPLIED. NO BLEEDING/HEMATOMA NOTED.
--- NOTE | 2018-09-22 15:28 | NUR ---
DISCUSSED DISCHARGE INSTRUCTIONS WITH PT. RIGHT WRIST TR BAND IN PLACE. NO S/S OF HEMATOMA NOTED. DRESSING C/D/I.
--- NOTE | 2018-09-22 15:30 | NUR ---
PT TAKEN OUT BY WHEELCHAIR. NO S/S OF DISTRESS NOTED. RIGHT WRIST DRESSING C/D/I. NO S/S OF HEMATOMA. ALL BELONGINGS IN HAND.
== END 2018-09-22 15:30 | disposition home or self-care (01) ==
LOC: D.CATH 11:36
PROVIDERS: Internal Medicine Cardiovascular Disease
DX: I20.9 Angina pectoris, unspecified (principal); R94.39 Abnormal result of other cardiovascular function study

== ENCOUNTER → 2018-12-28 11:07 | Outpatient (CLI) | payer MEDICAID ==
[2018-09-22 12:03] VITALS: BMI 50.8
[~2018-12-28 11:07] MED LIST changes: +ASPIRIN81 MG PO; +COREG6.25 MG PO; +ENTRESTO 24 MG1 EACH PO; +JANUMET XR 1001 EACH PO; +LEVEMIR FL100 UNIT/1 SC; +LIPITOR10 MG PO; +LISINOPRIL2.5 MG PO
== END | disposition home or self-care (01) ==
LOC: D.HCCARDIO 11:00
PROVIDERS: ATTEND Internal Medicine Cardiovascular Disease
DX: I42.9 Cardiomyopathy, unspecified (principal)

== ENCOUNTER 2020-02-12 22:07 | Emergency (ER) | payer MEDICAID ==
[~2020-02-12] VITALS: Ht 165.1 cm; Wt 145.5 kg
[2020-02-12 22:11] VITALS: Ht 165.1 cm; Wt 145.5 kg
[2020-02-12] MEDS ORDERED: EC-NAPROSYN500 MG PO (23:24)
[2020-02-12] MEDS ORDERED: CYCLOBENZAPRINE10 MG PO (23:24)
[2020-02-12 23:40] VITALS: BP 148/92
== END 2020-02-12 23:40 | disposition home or self-care (01) ==
LOC: D.ER 22:07
DX: M54.12 Radiculopathy, cervical region (principal); M62.838 Other muscle spasm; E11.9 Type 2 diabetes mellitus without complications; I10 Essential (primary) hypertension; Z79.4 Long term (current) use of insulin; M54.2 Cervicalgia

== ENCOUNTER 2020-02-14 21:28 | Emergency (ER) | payer MEDICAID ==
[~2020-02-14] VITALS: Ht 165.1 cm; Wt 145.5 kg
[~2020-02-14 21:28] MED LIST changes: +CYCLOBENZAPRINE10 MG PO; +EC-NAPROSYN500 MG PO
[2020-02-14 21:39] VITALS: Ht 165.1 cm; Wt 145.5 kg
[2020-02-14 22:06] LABS: BASOPHILS 0.7 % (0-2); EOSINOPHILS 2.7 % (0-7); HEMATOCRIT 38.7 % (36.0-48.0); HEMOGLOBIN 12.2 g/dL (12-16); IMMATURE GRANULOCYTES 0.2 % (0-5); LYMPHOCYTES 33.4 % (15-50); MCH 28.2 pg (26.0-34.0); MCHC 31.5 g/dL (31.0-37.0); MCV 89.4 fL (80.0-100.0); MEAN PLATELET VOLUME 9.5 fL (7.4-10.4); PLATELET COUNT 311 10x3/uL (130-400); RBC 4.33 10x6/uL (4.00-5.40); RDW 13.8 % (11.5-14.5); WBC 10.3 10x3/uL (4.8-10.8)
[2020-02-14 22:22] LABS: CALC OSMOLALITY 276 mosm/kg (275-300); CARBON DIOXIDE 26.4 mmol/L (21.0-32.0); CHLORIDE - SERUM 105 mmol/L (98-107); CREATININE - SERUM 1.1 mg/dL (0.6-1.3); GLUCOSE 115 mg/dL (74-106); POTASSIUM - SERUM 3.6 mmol/L (3.5-5.1); SODIUM 138 mmol/L (136-145); UREA NITROGEN 13 mg/dL (7-18); eGFR NON AFRICAN AMERICAN 60 mL/min (90-120)
[2020-02-14 22:39] LABS: ALBUMIN 3.6 g/dL (3.4-5.0); ALKALINE PHOSPHATASE 79 U/L (30-120); ALT (SGPT) 49 U/L (10-68); BILIRUBIN - TOTAL 0.24 mg/dL (0.2-1.3); CKMB 0.7 U/L (0.0-3.6); CREATINE KINASE 202 UL (21-215); MAGNESIUM - SERUM 1.9 mg/dL (1.8-2.4); PROTEIN - SERUM 7.7 g/dL (6.4-8.2)
[2020-02-14 22:41] LABS: TROPONIN-I < 0.017 ng/mL (0.000-0.060)
[2020-02-15 01:06] VITALS: BP 109/68
== END 2020-02-15 01:08 | disposition home or self-care (01) ==
LOC: D.ER 21:28
PROVIDERS: Family Medicine
DX: M50.30 Other cervical disc degeneration, unspecified cervical region (principal); R07.9 Chest pain, unspecified; M51.34 Other intervertebral disc degeneration, thoracic region; E11.9 Type 2 diabetes mellitus without complications; I10 Essential (primary) hypertension

== ENCOUNTER 2020-02-27 23:46 | Emergency (ER) | payer MEDICAID ==
[~2020-02-27] VITALS: Ht 165.1 cm; Wt 145.1 kg
[2020-02-27 23:49] VITALS: BP 164/89; Ht 165.1 cm; Wt 145.1 kg
[2020-02-28] MEDS ORDERED: HYDROCODON-ACE1 EAC2 PO (00:24)
[2020-02-29] MEDS ORDERED: CHRONULAC30 ML PO (08:30)
== END 2020-02-28 00:45 | disposition home or self-care (01) ==
LOC: D.ER 23:46
DX: K64.5 Perianal venous thrombosis (principal); E11.9 Type 2 diabetes mellitus without complications; I10 Essential (primary) hypertension

== ENCOUNTER 2020-02-29 07:17 | Emergency (ER) | payer MEDICAID ==
[~2020-02-29] VITALS: Ht 165.1 cm; Wt 145.5 kg
[~2020-02-29 07:17] MED LIST changes: +HYDROCODON-ACE1 EAC2 PO
[2020-02-29 07:27] VITALS: Ht 165.1 cm; Wt 145.5 kg
[2020-02-29] MEDS ORDERED: CHRONULAC30 ML PO (08:30)
[2020-02-29 09:09] VITALS: BP 135/87
== END 2020-02-29 09:12 | disposition home or self-care (01) ==
LOC: D.ER 07:17
DX: K64.5 Perianal venous thrombosis (principal); K59.00 Constipation, unspecified; E11.9 Type 2 diabetes mellitus without complications; I10 Essential (primary) hypertension

== ENCOUNTER 2020-04-11 10:44 | Emergency (ER) | payer MEDICAID ==
[~2020-04-11] VITALS: Ht 165.1 cm; Wt 141.4 kg
[~2020-04-11 10:44] MED LIST changes: +CHRONULAC30 ML PO
[2020-04-11 10:52] VITALS: Ht 165.1 cm; Wt 141.4 kg
[2020-04-11 11:23] LABS: BASOPHILS 1.2 % (0-2); EOSINOPHILS 1.9 % (0-7); HEMATOCRIT 39.3 % (36.0-48.0); HEMOGLOBIN 12.8 g/dL (12-16); IMMATURE GRANULOCYTES 0.2 % (0-5); LYMPHOCYTES 31.3 % (15-50); MCH 28.3 pg (26.0-34.0); MCHC 32.6 g/dL (31.0-37.0); MCV 86.9 fL (80.0-100.0); MEAN PLATELET VOLUME 10.5 fL (7.4-10.4); MONOCYTES 5.2 % (2-11); NEUTROPHILS 60.2 % (40-80); PLATELET COUNT 312 10x3/uL (130-400); RBC 4.52 10x6/uL (4.00-5.40); RDW 13.1 % (11.5-14.5); WBC 8.6 10x3/uL (4.8-10.8)
[2020-04-11 11:32] LABS: ANION GAP 10.6 mmol/L (8-16); CALCIUM 9.1 mg/dL (8.5-10.1); CARBON DIOXIDE 25.8 mmol/L (21.0-32.0); POTASSIUM - SERUM 4.4 mmol/L (3.5-5.1)
[2020-04-11 11:38] LABS: ALBUMIN 3.8 g/dL (3.4-5.0); BILIRUBIN - TOTAL 0.52 mg/dL (0.2-1.3); MAGNESIUM - SERUM 1.7 mg/dL (1.8-2.4); PROTEIN - SERUM 8.3 g/dL (6.4-8.2)
[2020-04-11 12:37] LABS: BILIRUBIN NEGATIVE (NEGATIVE); KETONE LARGE mg/dL (NEGATIVE); NITRITE NEGATIVE (NEGATIVE); UROBILINOGEN NORMAL (NORMAL)
[2020-04-11 15:32] VITALS: BP 146/88
== END 2020-04-11 15:32 | disposition home or self-care (01) ==
LOC: D.ER 10:44
PROVIDERS: Family Medicine
DX: E11.65 Type 2 diabetes mellitus with hyperglycemia (principal)

== ENCOUNTER 2020-04-15 00:25 | Emergency (ER) | payer MEDICAID ==
[~2020-04-15] VITALS: Ht 165.1 cm; Wt 140.9 kg
[2020-04-15 00:39] VITALS: Ht 165.1 cm; Wt 140.9 kg
[2020-04-15] MEDS ORDERED: BASAGLAR K100 UNIT/1 SC (00:43)
[2020-04-15] MEDS ORDERED: GLUCOPHAGE500 MG PO (00:43)
[2020-04-15 01:22] LABS: BASOPHILS 0.4 % (0-2); EOSINOPHILS 1.7 % (0-7); HEMATOCRIT 43.2 % (36.0-48.0); HEMOGLOBIN 14.2 g/dL (12-16); IMMATURE GRANULOCYTES 0.3 % (0-5); LYMPHOCYTES 28.7 % (15-50); MCH 28.2 pg (26.0-34.0); MCHC 32.9 g/dL (31.0-37.0); MCV 85.7 fL (80.0-100.0); MEAN PLATELET VOLUME 10.9 fL (7.4-10.4); MONOCYTES 7.9 % (2-11); PLATELET COUNT 317 10x3/uL (130-400); RBC 5.04 10x6/uL (4.00-5.40); RDW 13.4 % (11.5-14.5); WBC 11.4 10x3/uL (4.8-10.8)
[2020-04-15 01:23] LABS: BILIRUBIN NEGATIVE (NEGATIVE); KETONE MODERATE mg/dL (NEGATIVE); NITRITE NEGATIVE (NEGATIVE); UROBILINOGEN NORMAL (NORMAL)
[2020-04-15 02:04] LABS: ANION GAP 18.3 mmol/L (8-16); CALCIUM 9.5 mg/dL (8.5-10.1); CARBON DIOXIDE 19.9 mmol/L (21.0-32.0); CREATININE - SERUM 1.2 mg/dL (0.6-1.3); POTASSIUM - SERUM 4.2 mmol/L (3.5-5.1)
[2020-04-15 02:08] LABS: ALBUMIN 3.7 g/dL (3.4-5.0); BILIRUBIN - TOTAL 0.35 mg/dL (0.2-1.3); PROTEIN - SERUM 7.9 g/dL (6.4-8.2)
[2020-04-15 02:19] LABS: HCG SERUM NEGATIVE (NEGATIVE)
[2020-04-15] MEDS ORDERED: ZOFRAN ODT4 MG/UDTAB PO (04:21)
[2020-04-15] MEDS ORDERED: LOMOTIL 2.5-0.1 EAC1 PO (04:21)
[2020-04-15 04:46] VITALS: BP 125/66
== END 2020-04-15 04:46 | disposition home or self-care (01) ==
LOC: D.ER 00:25
PROVIDERS: Family Medicine
DX: A08.4 Viral intestinal infection, unspecified (principal); E11.9 Type 2 diabetes mellitus without complications; I10 Essential (primary) hypertension; Z79.84 Long term (current) use of oral hypoglycemic drugs; R11.2 Nausea with vomiting, unspecified; R19.7 Diarrhea, unspecified; R10.9 Unspecified abdominal pain

== ENCOUNTER 2020-11-22 16:42 | Emergency (ER) | payer BC ==
[~2020-11-22] VITALS: Ht 165.1 cm; Wt 138.6 kg
[~2020-11-22 16:42] MED LIST changes: +ALBUTEROL SULF8.5 GM INH; +AUGMENTIN 875-11 TAB PO; +BASAGLAR K100 UNIT/1 SC; +DECADRON4 MG PO; +LOMOTIL 2.5-0.1 EAC1 PO; +ZOFRAN ODT4 MG/UDTAB PO
[2020-11-22 16:45] VITALS: Ht 165.1 cm; Wt 138.6 kg
[2020-11-22] MEDS ORDERED: CYCLOBENZAPRINE10 MG PO (17:30)
[2020-11-22] MEDS ORDERED: ACETAMINOPHEN500 M1 PO (17:30)
[2020-11-22] MEDS ORDERED: IBUPROFEN800 MG PO (17:30)
[2020-11-22 17:50] VITALS: BP 142/94
== END 2020-11-22 17:51 | disposition home or self-care (01) ==
LOC: D.ER 16:42
DX: M25.512 Pain in left shoulder (principal); M79.10 Myalgia, unspecified site; S46.002A Unspecified injury of muscle(s) and tendon(s) of the rotator cuff of left shoulder, initial encounter; E11.9 Type 2 diabetes mellitus without complications; I10 Essential (primary) hypertension; Z79.84 Long term (current) use of oral hypoglycemic drugs; X58.XXXA Exposure to other specified factors, initial encounter

== ENCOUNTER 2020-12-12 23:03 | Emergency (ER) | payer BC ==
[~2020-12-12 23:03] MED LIST changes: +ACETAMINOPHEN500 M1 PO
[2020-12-12 23:12] VITALS: Ht 165.1 cm
[2020-12-12] MEDS ORDERED: OZEMPIC1 MG/0.75 SC (23:14)
[2020-12-12 23:39] LABS: HEMATOCRIT 37.6 % (36.0-48.0); HEMOGLOBIN 12.2 g/dL (12-16); LYMPHOCYTES 32.3 % (15-50); MCH 28.5 pg (26.0-34.0); MCHC 32.4 g/dL (31.0-37.0); MCV 87.9 fL (80.0-100.0); MEAN PLATELET VOLUME 9.4 fL (7.4-10.4); NEUTROPHILS 58.5 % (40-80); PLATELET COUNT 294 10x3/uL (130-400); RBC 4.28 10x6/uL (4.00-5.40); RDW 13.5 % (11.5-14.5); WBC 9.7 10x3/uL (4.8-10.8)
[2020-12-12] MEDS ORDERED: ZOFRAN ODT4 MG/UDTAB PO (23:41)
[2020-12-12] MEDS ORDERED: LOPERAMIDE HCL2 MG PO (23:41)
[2020-12-12 23:46] LABS: CALC OSMOLALITY 282 mosm/kg (275-300); CALCIUM 8.8 mg/dL (8.5-10.1); CARBON DIOXIDE 25.4 mmol/L (21.0-32.0); CHLORIDE - SERUM 106 mmol/L (98-107); CREATININE - SERUM 0.9 mg/dL (0.6-1.3); GLUCOSE 121 mg/dL (74-106); POTASSIUM - SERUM 3.6 mmol/L (3.5-5.1); SODIUM 141 mmol/L (136-145); UREA NITROGEN 14 mg/dL (7-18); eGFR NON AFRICAN AMERICAN 75 mL/min (90-120)
[2020-12-12 23:47] LABS: BILIRUBIN NEGATIVE (NEGATIVE); KETONE NEGATIVE (NEGATIVE); NITRITE NEGATIVE (NEGATIVE); UROBILINOGEN NORMAL mg/dL (< 2)
[2020-12-12 23:48] LABS: SQUAMOUS EPITHELIAL 0-5 HPF (0-4); WHITE CELLS - URINE 0-5 HPF (0-4)
[2020-12-12 23:49] LABS: BACTERIA MODERATE HPF (NONE SEEN)
[2020-12-12 23:52] LABS: ALBUMIN 3.5 g/dL (3.4-5.0); ALKALINE PHOSPHATASE 75 U/L (30-120); ALT (SGPT) 38 U/L (10-68); BILIRUBIN - TOTAL 0.19 mg/dL (0.2-1.3); PROTEIN - SERUM 7.7 g/dL (6.4-8.2)
[2020-12-13 00:28] VITALS: BP 144/92
== END 2020-12-13 00:28 | disposition home or self-care (01) ==
LOC: D.ER 23:03
PROVIDERS: Family Medicine
DX: A08.4 Viral intestinal infection, unspecified (principal); E11.9 Type 2 diabetes mellitus without complications; I10 Essential (primary) hypertension; Z79.84 Long term (current) use of oral hypoglycemic drugs

== ENCOUNTER 2020-12-19 13:57 | Emergency (ER) | payer BC ==
[~2020-12-19] VITALS: Ht 165.1 cm; Wt 138.6 kg
[~2020-12-19 13:57] MED LIST changes: +LOPERAMIDE HCL2 MG PO; +OZEMPIC1 MG/0.75 SC
[2020-12-19 14:01] VITALS: Ht 165.1 cm; Wt 138.6 kg
[2020-12-19 14:22] LABS: BASOPHILS 0.7 % (0-2); EOSINOPHILS 2.6 % (0-7); HEMATOCRIT 37.2 % (36.0-48.0); HEMOGLOBIN 12.2 g/dL (12-16); IMMATURE GRANULOCYTES 0.2 % (0-5); LYMPHOCYTE ABS# 2.99 10x3/uL (1.18-3.74); LYMPHOCYTES 34.1 % (15-50); MCH 28.7 pg (26.0-34.0); MCHC 32.8 g/dL (31.0-37.0); MCV 87.5 fL (80.0-100.0); MONOCYTES 8.2 % (2-11); NEUTROPHIL ABS# 4.76 10x3/uL (1.56-6.13); NEUTROPHILS 54.2 % (40-80); PLATELET COUNT 309 10x3/uL (130-400); RBC 4.25 10x6/uL (4.00-5.40); RDW 13.8 % (11.5-14.5); WBC 8.8 10x3/uL (4.8-10.8)
[2020-12-19 14:34] LABS: CALC OSMOLALITY 283 mosm/kg (275-300); CALCIUM 9.1 mg/dL (8.5-10.1); CARBON DIOXIDE 27.4 mmol/L (21.0-32.0); CHLORIDE - SERUM 108 mmol/L (98-107); GLUCOSE 101 mg/dL (74-106); POTASSIUM - SERUM 4.1 mmol/L (3.5-5.1); SODIUM 142 mmol/L (136-145); UREA NITROGEN 14 mg/dL (7-18); eGFR NON AFRICAN AMERICAN 66 mL/min (90-120)
[2020-12-19 14:47] LABS: ALBUMIN 3.4 g/dL (3.4-5.0); ALKALINE PHOSPHATASE 73 U/L (30-120); ALT (SGPT) 39 U/L (10-68); BILIRUBIN - TOTAL 0.26 mg/dL (0.2-1.3); PRO BNP 80 pg/mL (0-125); PROTEIN - SERUM 7.8 g/dL (6.4-8.2)
[2020-12-19 14:51] LABS: TROPONIN-I < 0.017 ng/mL (0.000-0.060)
[2020-12-19 16:12] VITALS: BP 145/86
== END 2020-12-19 16:08 | disposition home or self-care (01) ==
LOC: D.ER 13:57
PROVIDERS: Emergency Medicine
DX: R07.9 Chest pain, unspecified (principal); E66.01 Morbid (severe) obesity due to excess calories; E11.9 Type 2 diabetes mellitus without complications; I10 Essential (primary) hypertension; Z79.84 Long term (current) use of oral hypoglycemic drugs

== ENCOUNTER 2020-12-20 07:35 | Emergency (ER) | payer BC ==
[~2020-12-20] VITALS: Ht 165.1 cm; Wt 138.6 kg
[2020-12-20 07:43] VITALS: Ht 165.1 cm; Wt 138.6 kg
[2020-12-20 08:51] LABS: BASOPHILS 0.6 % (0-2); HEMATOCRIT 39.2 % (36.0-48.0); HEMOGLOBIN 12.9 g/dL (12-16); IMMATURE GRANULOCYTES 0.3 % (0-5); LYMPHOCYTE ABS# 2.39 10x3/uL (1.18-3.74); LYMPHOCYTES 23.8 % (15-50); MCHC 32.9 g/dL (31.0-37.0); MCV 88.1 fL (80.0-100.0); MEAN PLATELET VOLUME 9.7 fL (7.4-10.4); MONOCYTES 7.8 % (2-11); NEUTROPHIL ABS# 6.47 10x3/uL (1.56-6.13); NEUTROPHILS 64.5 % (40-80); PLATELET COUNT 322 10x3/uL (130-400); RBC 4.45 10x6/uL (4.00-5.40); RDW 13.8 % (11.5-14.5)
[2020-12-20 09:01] LABS: CALC OSMOLALITY 281 mosm/kg (275-300); CALCIUM 8.9 mg/dL (8.5-10.1); CARBON DIOXIDE 26.1 mmol/L (21.0-32.0); CHLORIDE - SERUM 106 mmol/L (98-107); CREATININE - SERUM 0.9 mg/dL (0.6-1.3); GLUCOSE 112 mg/dL (74-106); POTASSIUM - SERUM 4.2 mmol/L (3.5-5.1); SODIUM 141 mmol/L (136-145); UREA NITROGEN 13 mg/dL (7-18); eGFR NON AFRICAN AMERICAN 75 mL/min (90-120)
[2020-12-20 09:09] LABS: ALBUMIN 3.5 g/dL (3.4-5.0); ALKALINE PHOSPHATASE 77 U/L (30-120); ALT (SGPT) 39 U/L (10-68); BILIRUBIN - TOTAL 0.24 mg/dL (0.2-1.3); PROTEIN - SERUM 7.7 g/dL (6.4-8.2); TROPONIN-I < 0.017 ng/mL (0.000-0.060)
[2020-12-20 10:24] VITALS: BP 152/86
== END 2020-12-20 10:40 | disposition home or self-care (01) ==
LOC: D.ER 07:35
PROVIDERS: Emergency Medicine
DX: R59.0 Localized enlarged lymph nodes (principal); E11.9 Type 2 diabetes mellitus without complications; I10 Essential (primary) hypertension; Z79.84 Long term (current) use of oral hypoglycemic drugs; R07.9 Chest pain, unspecified